=== PATIENT | male | born 1950 | race Caucasian/White ===

== ENCOUNTER 2016-08-26 07:10 | Inpatient (IN) | payer BC ==
[2016-08-26] MEDS ORDERED: Sotalol TAB* 80 MG ONE (11:36)
[2016-08-26] MEDS: Sotalol TAB* 80 MG PO SCH ×2 (11:37→21:02)
[2016-08-26] MEDS ORDERED: Pneumococcal *Vac Polyvalent 0.5 ML VIAL IM ONE (14:00)
[2016-08-26 14:11] LABS: Calcium 8.9 mg/dL (8.6-10.3); EGFR African American 135.3 (>60); EGFR Non-African American 105.2 (>60); Potassium 3.8 mmol/L (3.5-5.0)
[2016-08-26] MEDS: Apixaban* 5 MG TAB PO SCH ×2 (15:36→23:11)
[2016-08-26] MEDS ORDERED: Potassium Chlor TAB* 20 MEQ TAB.ER PO ONE (18:13)
[2016-08-26] MEDS: Acetaminophen TAB* 325 MG PO PRN (21:05)
[2016-08-27] MEDS: Temazepam CAP* 15 MG PO PRN ×2 (03:10→23:43)
[2016-08-27] MEDS: Omeprazole CAP* 20 MG PO SCH (07:33)
[2016-08-27] MEDS ORDERED: Valsartan/HCTZ 320/25(NF) TAB PO SCH (09:00)
[2016-08-27] MEDS: Potassium Chlor TAB* 20 MEQ TAB.ER PO SCH (09:39)
[2016-08-27] MEDS: Digoxin TAB* 0.25 MG PO SCH (09:40)
[2016-08-27] MEDS: Valsartan TAB* 160 MG PO SCH (09:40)
[2016-08-27] MEDS: Cholecalciferol TAB* 1000 UNITS PO SCH (09:40)
[2016-08-27] MEDS: Hydrochlorothiazide TAB* 25 MG PO SCH (09:40)
--- NOTE | 2016-08-27 09:42 | PN ---
Subjective Date of Service: 08/27/16 Interval History: f/u Afib Still with palpitations, ate breakfast no cp or dyspnea tele; rate uncontrolled AFib, no ventricular arrhythmias Medications Active Medications: Acetaminophen (Tylenol Tab*) 650 mg PO Q4H PRN PRN Reason: FEVER/PAIN Last Admin: 08/26/16 21:05 Dose: 650 mg Apixaban (Eliquis*) 5 mg PO BID [facility] Cholecalciferol (Vitamin D Tab*) 1,000 units PO DAILY [facility] Digoxin (Lanoxin Tab*) 0.25 mg PO DAILY [facility] Hydrochlorothiazide (Hydrodiuril Tab*) 25 mg PO DAILY [facility] Omeprazole (Prilosec Cap*) 40 mg PO DAILY@0730 [facility] Last Admin: 08/27/16 07:33 Dose: 40 mg Potassium Chloride (Klor Con Er Tab*) 20 meq PO DAILY [facility] Sotalol HCl (Betapace Tab*) 80 mg PO BID [facility] Last Admin: 08/26/16 21:02 Dose: 80 mg Temazepam (Restoril Cap*) 15 mg PO BEDTIME PRN PRN Reason: INSOMNIA Last Admin: 08/27/16 03:10 Dose: 15 mg Valsartan (Diovan Tab*) 320 mg PO DAILY [facility] Objective Vital Signs: Temp Pulse Resp BP Pulse Ox 98.1 F 116 16 141/88 97 08/27/16 07:11 08/27/16 07:11 08/27/16 08:00 08/27/16 07:11 08/27/16 07:11 Appearance: nad, pleasant Ears/Nose/Mouth/Throat: Clear Oropharnyx, Mucous Membranes Moist Neck: NL Appearance and Movements; NL JVP Respiratory: Symmetrical Chest Expansion and Respiratory Effort Cardiovascular: No Edema, - - irregularly irregular, no significant murmur Abdominal: NL Sounds; No Tenderness; No Distention Extremities: No Edema, No Clubbing, Cyanosis Skin: No Rash or Ulcers Neurological: Alert and Oriented x 3 Laboratory Results: 08/26/16 12:15 EKG Data: EKG 08/26/2016: AFib rate uncontrolled, PVC, normal QTc Assessment/Plan Mr. Rhodes is a 65 year old man with a history of HTN, obesity, sleep apnea had successful OCTAVIO/cardioversion 08/26/2016 with ERAF after several beats now admitted for sotalol initiation and repeat cardioversion attempt planned for - Continue eliquis 5 mg PO BID - Continue digoxin and sotalol as per Dr. 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
[2016-08-27] MEDS: Sotalol TAB* 80 MG PO SCH ×2 (09:43→20:09)
[2016-08-27] MEDS: Apixaban* 5 MG TAB PO SCH ×2 (09:43→20:09)
[2016-08-27] MEDS: Acetaminophen TAB* 325 MG PO PRN (11:40)
--- NOTE | 2016-08-27 12:29 | TEE ---
Patient: ETHAN HOANG [facility] Rec#: [id number] : 1950 Date: 08/26/2016 Age: 65y Height: 188 cm / 74.0 in Weight: 116.6 kg / 257.0 lbs Sex: M BSA: 2.4 Admit Date#: 08/26/2016 Type: Outpatient Referring: Gloria Garland MD Performing: Gloria Garland MD Reading: Gloria Garland MD Web Solutions Architect: Rachael Brandon RN RDCS Nurse: Melody Ornelas RN CC: Oxana Carmona MD Transesophageal Echocardiogram Indication: Atrial fibrillation BP: 142/89 HR: 132 Rhythm: A-Fib Findings History: HTN, PVCs, SVT, obstructive sleep apnea, AKA, prostate cancer Technical Comments: The study quality is good. Left Ventricle: The left ventricular chamber size is normal. Mild concentric left ventricular hypertrophy is observed. There is diffuse global hypokinesis of the left ventricle. There is moderately decreased left ventricular systolic function.30-40%, it appears to vary with the patient's heart rate. The assessment of diastolic function is non-diagnostic. Left Atrium: The left atrium is moderately dilated.6.1 x 6.3 cm and 5.3 x 4.9 cm No thrombus is visualized within the left atrium. There is no thrombus visualized in the left atrial appendage. Right Ventricle: The right ventricle is mildly dilated. The right ventricular global systolic function is mildly to moderately reduced. Right Atrium: The right atrium is mild to moderately dilated. A prominent eustachian valve is noted in the right atrium. Interatrial septum appears intact without evidence of shunting. There is no patent foramen ovale visualized. The bubble study is negative. Aortic Valve: The aortic valve is trileaflet. The aortic valve leaflets are mildly thickened. There is no evidence of aortic regurgitation. There is no evidence of aortic stenosis. Mitral Valve: The mitral valve leaflets are mildly thickened. There is mild to moderate mitral regurgitation. with multiple jets in some views. There is no evidence of mitral stenosis. Tricuspid Valve: The tricuspid valve leaflets are normal. There is trace tricuspid regurgitation. Pulmonic Valve: The pulmonic valve appears normal. There is a trace pulmonic regurgitation. There is no pulmonic stenosis. Pericardium: There is no significant pericardial effusion. Aorta: There is mild dilatation of the ascending aorta.at 3.8 cm. There is mild dilatation of the aortic root. There is minimal atherosclerotic plaque seen in the aorta. Pulmonary Artery: The main pulmonary artery appears normal. Venous: The bicaval view was obtained and appears normal. The pulmonary veins appear normal. 3 of 4 pulmonary veins are visualized and interrogated with Doppler. OCTAVIO Procedures: All standard views were attempted within the limitations of patient tolerance and safety. History and physical as well as labs were reviewed. The patient was in a fasting state. Risks and benefits of the procedure, including alternatives, were discussed and written informed consent was obtained. The patient and/or their health care retail customer service representative expressed understanding of the procedure, risks and benefits. Baseline and continuous monitoring of blood pressure, heart rate, pulse oximetry and heart rhythm was performed throughout the procedure. The appropriate time-out procedure was performed as per [facility] protocol. The patient was placed in the left lateral decubitus position. The patient's posterior pharynx was anesthetized with 20ml of 2% viscous lidocaine. The patient received IV Midazolam with a total dose of 11 mg. The patient received IV Fentanyl with a total dose of 100 mcg. An oral bite block was inserted for protection of oral dentition. The multiplane transesophageal echocardiogram probe was inserted through the posterior oropharynx and advanced into the esophagus without difficulty. Multiple 2D images were obtained of the heart and its related structures. Color flow Doppler was used for evaluation. Spectral Doppler was also used. The atrial septum was interrogated with color flow Doppler. At the conclusion of the procedure the probe was removed with continuous suction without complications. The patient tolerated the procedure with no apparent complications. Contrast: Normal saline was used as contrast for the bubble study. Image 49. Conclusions Mild concentric left ventricular hypertrophy is observed with diffuse global hypokinesis of the left ventricle. There is moderately decreased left ventricular systolic function.30-40%, it appears to vary with the patient's heart rate, appears better on gastric views. The left atrium is moderately dilated. The right atrium is mild to moderately dilated. The bubble study is negative. There is no thrombus visualized in the left atrial appendage. The right ventricular global systolic function is mildly to moderately reduced. There is mild to moderate mitral regurgitation. There is trace tricuspid regurgitation. There is mild dilatation of the ascending aorta.at 3.8 cm. Compared with prior transthoracic study of , EF has decreased from normal, no progression in aorta diameter, previously 4.0 cm. A fib and tachycardia are new. Measurements Name Value Normal Range Aortic Annulus 2.6 cm (1.4 - 2.6) Ao root diameter (2D) 3.8 cm (2.1 - 3.5) Ascending Ao 3.8 cm (2.1 - 3.4) Name Value Normal Range MV E-wave Vmax 0.74 m/sec - MV deceleration time 127 msec -
[2016-08-28 05:39] LABS: BUN/Creatinine Ratio 21.1 (8-20); EGFR African American 133.2 (>60); EGFR Non-African American 103.6 (>60); Magnesium 1.9 mg/dL (1.9-2.7); Potassium 4.1 mmol/L (3.5-5.0)
[2016-08-28] MEDS: Omeprazole CAP* 20 MG PO SCH ×2 (08:46→15:05)
[2016-08-28] MEDS: Cholecalciferol TAB* 1000 UNITS PO SCH ×2 (08:47→15:05)
[2016-08-28] MEDS: Digoxin TAB* 0.25 MG PO SCH ×2 (08:47→15:06)
[2016-08-28] MEDS: Valsartan TAB* 160 MG PO SCH ×2 (08:47→15:07)
[2016-08-28] MEDS: Sotalol TAB* 80 MG PO SCH ×2 (08:47→10:45)
[2016-08-28] MEDS: Hydrochlorothiazide TAB* 25 MG PO SCH ×2 (08:47→15:07)
[2016-08-28] MEDS: Potassium Chlor TAB* 20 MEQ TAB.ER PO SCH ×2 (08:47→15:07)
[2016-08-28] MEDS: Apixaban* 5 MG TAB PO SCH ×3 (08:47→19:56)
--- NOTE | 2016-08-28 10:37 | PN ---
Subjective Date of Service: 08/28/16 - CC: palpitations Interval History: f/u Afib Still with palpitations, afib Medications Active Medications: Acetaminophen (Tylenol Tab*) 650 mg PO Q4H PRN PRN Reason: FEVER/PAIN Last Admin: 08/27/16 11:40 Dose: 650 mg Apixaban (Eliquis*) 5 mg PO BID [facility] Last Admin: 08/28/16 08:47 Dose: Not Given Cholecalciferol (Vitamin D Tab*) 1,000 units PO DAILY [facility] Last Admin: 08/28/16 08:47 Dose: Not Given Digoxin (Lanoxin Tab*) 0.25 mg PO DAILY [facility] Last Admin: 08/28/16 08:47 Dose: Not Given Hydrochlorothiazide (Hydrodiuril Tab*) 25 mg PO DAILY [facility] Last Admin: 08/28/16 08:47 Dose: Not Given Omeprazole (Prilosec Cap*) 40 mg PO DAILY@0730 [facility] Last Admin: 08/28/16 08:46 Dose: Not Given Potassium Chloride (Klor Con Er Tab*) 20 meq PO DAILY [facility] Last Admin: 08/28/16 08:47 Dose: Not Given Sotalol HCl (Betapace Tab*) 80 mg PO BID [facility] Last Admin: 08/28/16 08:47 Dose: Not Given Temazepam (Restoril Cap*) 15 mg PO BEDTIME PRN PRN Reason: INSOMNIA Last Admin: 08/27/16 23:43 Dose: 15 mg Valsartan (Diovan Tab*) 320 mg PO DAILY [facility] Last Admin: 08/28/16 08:47 Dose: Not Given Objective Vital Signs: Temp Pulse Resp BP Pulse Ox 98.2 F 53 18 146/96 98 08/28/16 07:36 08/28/16 07:36 08/28/16 08:00 08/28/16 07:36 08/28/16 07:36 Oxygen Devices in Use Now: None Appearance: nad, pleasant Eyes: PERRLA Ears/Nose/Mouth/Throat: Clear Oropharnyx, Mucous Membranes Moist Neck: NL Appearance and Movements; NL JVP Respiratory: Symmetrical Chest Expansion and Respiratory Effort Cardiovascular: No Edema, - - irregularly irregular, no murmur Abdominal: NL Sounds; No Tenderness; No Distention Extremities: No Edema, No Clubbing, Cyanosis Skin: No Rash or Ulcers Neurological: Alert and Oriented x 3 Lines/Tubes/Other Access: Clean, Dry and Intact Peripheral IV Laboratory Results: 08/28/16 05:04 EKG Data: EKG 08/28/2016: AFib rate uncontrolled 120 bpm, normal QTc Assessment/Plan Mr. Rhodes is a 65 year old man with a history of HTN, obesity, sleep apnea unsuccessful OCTAVIO/cardioversion 08/26/2016 admitted for sotalol initiation and repeat cardioversion attempt planned for 08/28/2016 Lytes look good, needs AM sotalol pre cardioversion. s/p [id number] cardoverion. Points of Discussion: AFib: New, but refractory to CV. Sotalol did not improve rate control greatly. Stop Sotalol. Trial of coreg for BP and CM and rate control. Refer to EPS, ? Tikosyn, with frequent PVC's may not be the best candidate. ? amiodarone? young. Pt needs to optimize weight. COntinue anticoagulation.
[2016-08-28] MEDS ORDERED: fentaNYL* 50 MCG/ML 2 ML VIAL (100 MCG VIAL) ONE ×2 (11:38→12:01)
[2016-08-28] MEDS ORDERED: Naloxone* 0.4 MG/ML 1 ML VIAL ONE (11:38)
[2016-08-28] MEDS ORDERED: Flumazenil* 0.1 MG/ML 5 ML MDV ONE (11:38)
[2016-08-28] MEDS ORDERED: Midazolam* 1 MG/ML 10 ML VIAL (10 MG) ONE (11:39)
[2016-08-28] MEDS: Carvedilol TAB* 25 MG PO SCH (19:56)
[2016-08-28] MEDS: Acetaminophen TAB* 325 MG PO PRN (23:21)
[2016-08-29] MEDS: Cholecalciferol TAB* 1000 UNITS PO SCH (08:37)
[2016-08-29] MEDS: Digoxin TAB* 0.25 MG PO SCH (08:37)
[2016-08-29] MEDS: Potassium Chlor TAB* 20 MEQ TAB.ER PO SCH (08:39)
[2016-08-29] MEDS: Valsartan TAB* 160 MG PO SCH (08:40)
[2016-08-29] MEDS: Omeprazole CAP* 20 MG PO SCH (08:40)
[2016-08-29] MEDS: Apixaban* 5 MG TAB PO SCH (08:41)
[2016-08-29] MEDS: Carvedilol TAB* 25 MG PO SCH (08:41)
[2016-08-29] MEDS: Hydrochlorothiazide TAB* 25 MG PO SCH (08:41)
[2016-08-29 11:32] VITALS: BP 118/66
--- NOTE | 2016-09-23 03:49 | CARD ---
ELECTRICAL CARDIOVERSION NOTE: DATE OF PROCEDURE: 08/26/16 PROCEDURE: Electrical cardioversion. INDICATION: Atrial fibrillation. DESCRIPTION OF PROCEDURE: The indications, risks, and benefits of the procedure has been described to the patient in depth. He was amenable to proceeding. The patient underwent a transesophageal echo to ensure there was no thrombus. This report is documented separately. During this, he received 20 mL of 2% viscous lidocaine as well as 11 mg of Versed and 100 mcg of fentanyl. Using AP patches, initially 200 joules were delivered across the chest wall with unsuccessful cardioversion. This was then followed by a second attempt at 300 joules synchronously delivered, also unsuccessful. CONCLUSION: Unsuccessful cardioversion. Otherwise, no complications. The patient was admitted for sotalol loading. [id number]/[facility] #: [id number] ETELVINA
--- NOTE | 2016-09-23 03:58 | CARD ---
ELECTRICAL CARDIOVERSION: DATE OF PROCEDURE: 08/28/16 PROCEDURE: Electrical cardioversion. PREPROCEDURE DIAGNOSIS: Atrial fibrillation. POSTPROCEDURE DIAGNOSIS: Atrial fibrillation. INDICATION: Persistent atrial fibrillation. The patient has failed cardioversion on the August 26 2016. The patient was loaded with sotalol. He was made n.p.o. and scheduled for another attempt at cardioversion. DESCRIPTION OF PROCEDURE: The indications, risks, and benefits were reviewed with the patient. He was amenable to proceeding. The patient was in a postprandial state. A time-out was called. AP patches were applied to the chest wall. 300 joules were delivered synchronously with unsuccessful cardioversion (conscious sedation in the ICU). See conscious sedation sheet for details. CONCLUSION: The patient had an unsuccessful cardioversion, on sotalol. [id number]/[facility] #: [id number] MTDD
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
== END 2016-08-29 13:20 | disposition home or self-care (01) | DRG 201 ==
LOC: CHICATH 07:10 → MEDTELE 10:57
PROVIDERS: ADMIT Specialist; ATTEND Specialist
PROC: 5A2204Z Restoration of Cardiac Rhythm, Single (ICD-10-PCS; 2016-08-26)
PROC: B246ZZ4 Ultrasonography of Right and Left Heart, Transesophageal (ICD-10-PCS; principal; 2016-08-26 08:00)
PROC: 5A2204Z Restoration of Cardiac Rhythm, Single (ICD-10-PCS; 2016-08-28)
DX: I48.91 Unspecified atrial fibrillation (principal); Z89.612 Acquired absence of left leg above knee; I10 Essential (primary) hypertension; I47.1 Supraventricular tachycardia; G47.33 Obstructive sleep apnea (adult) (pediatric); E66.9 Obesity, unspecified; C44.519 Basal cell carcinoma of skin of other part of trunk; K44.9 Diaphragmatic hernia without obstruction or gangrene; I49.3 Ventricular premature depolarization; D23.9 Other benign neoplasm of skin, unspecified; Z80.42 Family history of malignant neoplasm of prostate; Z80.3 Family history of malignant neoplasm of breast; Z87.891 Personal history of nicotine dependence; Z79.01 Long term (current) use of anticoagulants; Z79.899 Other long term (current) drug therapy; Z85.46 Personal history of malignant neoplasm of prostate; Z68.30 Body mass index [BMI] 30.0-30.9, adult
CPT/HCPCS: 36415; 80048; 83735; 92960; 93005; 93312; 93325; A9270-GY; J2250; J2310; J3010

== ENCOUNTER 2017-07-18 08:42 | Inpatient (IN) | payer BC ==
[2017-07-18] MEDS ORDERED: Acetaminophen TAB* 325 MG PO PRN (10:26)
[2017-07-18 11:16] LABS: Calcium 8.9 mg/dL (8.6-10.3); EGFR African American 102.6 (>60); EGFR Non-African American 79.8 (>60); Magnesium 2.1 mg/dL (1.9-2.7)
[2017-07-18] MEDS: Dofetilide CAP* 500 MCG PO SCH ×2 (12:18→20:42)
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
[2017-07-18] MEDS: Apixaban* 5 MG TAB PO SCH (20:42)
[2017-07-18] MEDS: Carvedilol TAB* 25 MG PO SCH (20:42)
[2017-07-19 06:53] LABS: BUN/Creatinine Ratio 16.7 (8-20); Calcium 9.1 mg/dL (8.6-10.3); EGFR African American 101.4 (>60); EGFR Non-African American 78.9 (>60)
[2017-07-19] MEDS: Omeprazole CAP* 20 MG PO SCH (08:38)
[2017-07-19] MEDS: Apixaban* 5 MG TAB PO SCH ×2 (08:38→20:57)
[2017-07-19] MEDS: Dofetilide CAP* 500 MCG PO SCH ×2 (08:38→20:57)
[2017-07-19] MEDS: Carvedilol TAB* 25 MG PO SCH ×2 (08:38→20:57)
[2017-07-19] MEDS: Valsartan TAB* 160 MG PO SCH (08:39)
[2017-07-19] MEDS: Potassium Chlor TAB* 20 MEQ TAB.ER PO SCH (08:39)
[2017-07-19] MEDS ORDERED: Hydrochlorothiazide TAB* 25 MG PO SCH (09:00)
[2017-07-20 09:27] LABS: BUN/Creatinine Ratio 18.1 (8-20); Calcium 9.2 mg/dL (8.6-10.3); EGFR African American 91.5 (>60); EGFR Non-African American 71.1 (>60); Magnesium 2.1 mg/dL (1.9-2.7); Potassium 3.8 mmol/L (3.5-5.0)
[2017-07-20] MEDS: Dofetilide CAP* 500 MCG PO SCH (10:39)
[2017-07-20] MEDS: Carvedilol TAB* 25 MG PO SCH (10:40)
[2017-07-20] MEDS: Potassium Chlor TAB* 20 MEQ TAB.ER PO SCH (10:40)
[2017-07-20] MEDS: Apixaban* 5 MG TAB PO SCH (10:40)
[2017-07-20] MEDS: Omeprazole CAP* 20 MG PO SCH (10:40)
[2017-07-20] MEDS: Valsartan TAB* 160 MG PO SCH (10:40)
[2017-07-20 16:24] VITALS: BP 117/72
[2017-07-20] MEDS ORDERED: Potassium Chlor TAB* 20 MEQ TAB.ER PO ONE (17:00)
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
== END 2017-07-20 17:04 | disposition home or self-care (01) | DRG 201 ==
LOC: MEDTELE 09:25
PROVIDERS: ADMIT Specialist; ATTEND Internal Medicine Cardiovascular Disease
DX: I48.0 Paroxysmal atrial fibrillation (principal); I42.9 Cardiomyopathy, unspecified; Z89.619 Acquired absence of unspecified leg above knee; I10 Essential (primary) hypertension; R00.1 Bradycardia, unspecified; I49.3 Ventricular premature depolarization; Z86.19 Personal history of other infectious and parasitic diseases; Z85.46 Personal history of malignant neoplasm of prostate; Z79.01 Long term (current) use of anticoagulants
CPT/HCPCS: 36415; 80048; 83735; 93005; A9270-GY

== ENCOUNTER 2018-05-09 07:19 | Day surgery (SDC) | payer MEDICARE, BC ==
[~2018-05-09 07:19] MED LIST: Acetaminophen TAB* 325 MG PO PRN; Buffered Lidocaine 0.9% SYRIN* 5 ML/SYR SYRINGE INTRADERM ONE
[2018-05-09] MEDS ORDERED: Tropicamide 1% OPTH.SOL* BTL ONE (08:06)
[2018-05-09] MEDS ORDERED: Tetracaine 0.5% OPTH.SOL 4 ML* 1 DROP BTL ONE (08:06)
[2018-05-09] MEDS ORDERED: Ketorolac 0.5% OPHTH (NF) 0.5 % 5 ML BTL ONE (08:06)
[2018-05-09] MEDS ORDERED: Cyclopentolate 1% OPTH.SOL* 2 ML BTL ONE (08:06)
[2018-05-09] MEDS ORDERED: Neomycin/Polymy/Dex OPHTH.OIN* 3.5 GM ONE (08:06)
[2018-05-09] MEDS ORDERED: Lidocaine 1%* 5 ML VIAL ONE (08:06)
[2018-05-09] MEDS ORDERED: Phenylephrine 2.5% OPTH.SOL* 2 ML BTL ONE (08:06)
[2018-05-09] MEDS ORDERED: Trypan Blue 0.06% SOL* 0.5 ML BTL ONE (08:07)
[2018-05-09] MEDS ORDERED: fentaNYL* 50 MCG/ML 2 ML VIAL (100 MCG VIAL) ONE (08:30)
[2018-05-09] MEDS ORDERED: Midazolam* 1 MG/ML 2 ML VIAL (2 MG) ONE ×2 (08:30→08:48)
[2018-05-09 09:19] VITALS: BP 135/80
[2018-05-09] MEDS ORDERED: Phenylephr/Ketorolac 1%/0.3% OPH DROP BTL ONE (10:07)
--- NOTE | 2018-05-10 03:00 | OP ---
DATE OF OPERATION: 05/09/18 [facility] DATE OF : 54 SURGEON: Dr. Ramon Ferguson. SOLAR ENGINEER: None. ANESTHESIA: Topical with intravenous sedation. PRE-OP DIAGNOSIS: White cataract, left eye. POST-OP DIAGNOSIS: White cataract, left eye. OPERATIVE PROCEDURE: Phacoemulsification and cataract extraction with posterior chamber intraocular lens implant, left eye. COMPLICATIONS: None. BLOOD LOSS: None. DESCRIPTION OF PROCEDURE: The patient was brought to the operating room and given intravenous sedation, a drop of tetracaine to his left eye. He was prepped and draped in the usual sterile fashion for ophthalmic surgery. Attention was directed to the left eye where a speculum was placed. It was noted that his pupil was measuring approximately 4.5 mm and the lens was fairly white. A paracentesis was created at the 5 o'clock position and 0.1 cc of 1% preservative free lidocaine was injected into the anterior chamber. This was followed by room air and then VisionBlue. Subsequently, DisCoVisc was injected into the anterior chamber. A triplanar clear corneal incision was created at the 3 o'clock position using a 2.75 mm keratome. A continuous curvilinear capsulorrhexis was created with a cystotome and Utrata forceps measuring approximately 4.5 mm. BSS on a cannula was used to hydrodissect the lens from the capsule or may be it was added to the irrigating solution. Phacoemulsification was performed in a qadein-tqa-yeclsuw technique to create 4 fragments which were removed. Residual cortical material was removed with irrigation and aspiration. The capsular bag was polished. DisCoVisc was used to inflate the capsular bag. An AU00T0 18.0 diopter lens was inserted into the capsular bag. DisCoVisc was removed using irrigation aspiration. BSS on cannula was used to hydrate the corneal stroma and seal the wound. At the end of the case, the pupil was round. The lens was centered and stable. The eye pressure appeared normal and the wound was water tight. The speculum was removed and topical Maxitrol ointment was placed on the surface of the eye. The eye was closed, patched and shielded and the patient was sent to the recovery room in stable condition with postoperative instructions and follow-up appointment given. [id number]/[facility] #: [id number] [facility]ITAL[facility]
== END 2018-05-09 09:22 | disposition home or self-care (01) ==
LOC: OREAST 07:19
PROVIDERS: ATTEND Ophthalmology
DX: H25.12 Age-related nuclear cataract, left eye (principal); I10 Essential (primary) hypertension; I48.0 Paroxysmal atrial fibrillation; I49.3 Ventricular premature depolarization; I42.9 Cardiomyopathy, unspecified; Z85.46 Personal history of malignant neoplasm of prostate; K21.9 Gastro-esophageal reflux disease without esophagitis; E03.9 Hypothyroidism, unspecified; G47.33 Obstructive sleep apnea (adult) (pediatric)
CPT/HCPCS: A9270-GY; C9447; J2250; J3010; V2632

== ENCOUNTER 2018-08-22 08:06 | Day surgery (SDC) | payer MEDICARE, BC ==
[~2018-08-22 08:06] MED LIST changes: -Acetaminophen TAB* 325 MG PO PRN
[2018-08-22] MEDS ORDERED: Ketorolac 0.5% OPHTH (NF) 0.5 % 5 ML BTL ONE (09:16)
[2018-08-22] MEDS ORDERED: Tetracaine 0.5% OPTH.SOL 4 ML* 1 DROP BTL ONE (09:16)
[2018-08-22] MEDS ORDERED: Cyclopentolate 1% OPTH.SOL* 2 ML BTL ONE (09:16)
[2018-08-22] MEDS ORDERED: Tropicamide 1% OPTH.SOL* BTL ONE (09:16)
[2018-08-22] MEDS ORDERED: Lidocaine 1%* 5 ML VIAL ONE (09:16)
[2018-08-22] MEDS ORDERED: Neomycin/Polymy/Dex OPHTH.OIN* 3.5 GM ONE (09:16)
[2018-08-22] MEDS ORDERED: Midazolam* 1 MG/ML 2 ML VIAL (2 MG) ONE (09:53)
[2018-08-22 10:23] VITALS: BP 150/84
--- NOTE | 2018-08-22 11:05 | OP ---
DATE OF OPERATION/DATE OF DICTATION: 08/22/2018 - [facility] DATE OF : 1950. SURGEON: Dr. Ramon Ferguson. BLURB WRITER: None. ANESTHESIA: Topical with intravenous sedation. PRE-OP DIAGNOSIS: Cataract, right eye. POST-OP DIAGNOSIS: Cataract, right eye. OPERATIVE PROCEDURE: Phacoemulsification and cataract extraction with posterior chamber intraocular lens implant, right eye. COMPLICATIONS: None. BLOOD LOSS: None. DESCRIPTION OF PROCEDURE: The patient was brought to the operating room and received a small amount of intravenous sedation. A drop of Tetracaine was placed in his right eye. He was prepped and draped in the usual sterile fashion for ophthalmic surgery and attention was directed to the right eye where a speculum was placed. A paracentesis was created at the 11 o'clock position and 0.1 cc of 1 percent preservative-free Lidocaine was injected into the anterior chamber followed by DisCoVisc. The eye was digitally stabilized while a 2.75 mm keratome was used to create a triplanar clear corneal incision at the 9 o'clock position. A continuous curvilinear capsulorrhexis was created with a cystotome and Utrata forceps. BSS on a cannula was used to hydrodissect the lens from the capsule. Phacoemulsification was performed in a divide-and- conquer technique to create four fragments which were removed. Residual cortical material was removed with irrigation and aspiration. DisCoVisc was used to inflate the capsular bag and an AUOOTO 17.0 diopter lens was folded and inserted into the capsular bag. DisCoVisc was removed using irrigation and aspiration. BSS on a cannula was used to hydrate the corneal stroma and seal the wound. At the end of the case the pupil was round and the lens was centered. The eye was of normal pressure and the wound was water tight. The speculum was removed and topical Maxitrol ointment was placed on the surface of the eye. The eye was closed, patched and shielded and the patient was sent to the recovery room in stable condition with post operative instructions and follow-up appointment given. [id number]/[facility] #: [id number] MTDD
== END 2018-08-22 10:24 | disposition home or self-care (01) ==
LOC: OREAST 08:06
PROVIDERS: ATTEND Ophthalmology
DX: H25.11 Age-related nuclear cataract, right eye (principal); I10 Essential (primary) hypertension; Z87.891 Personal history of nicotine dependence; E03.8 Other specified hypothyroidism; K21.9 Gastro-esophageal reflux disease without esophagitis; G47.33 Obstructive sleep apnea (adult) (pediatric); Z85.828 Personal history of other malignant neoplasm of skin; I48.0 Paroxysmal atrial fibrillation; Z79.01 Long term (current) use of anticoagulants; I42.2 Other hypertrophic cardiomyopathy
CPT/HCPCS: A9270-GY; J2250; V2632

== ENCOUNTER 2023-11-16 12:46 | Observation (INO) ==
[2023-11-16 14:57] LABS: ABS Basophils 0.1 10^3/uL (0.0-0.1); ABS Eosinophils 0.2 10^3/uL (0.0-0.5); ABS Lymphocytes 1.6 10^3/uL (1.0-4.8); ABS Monocytes 0.9 10^3/uL (0.0-1.1); ABS Neutrophils 6.3 10^3/uL (1.5-7.6); Eosinophil % 2.1 %; Hematocrit 42.3 % (38-53); Hemoglobin 14.3 g/dL (13.2-16.3); Lymphocyte % 17.9 %; Mean Corpuscular Hemoglobin 30.4 pg (27-33); Mean Corpuscular Hgb Conc 33.9 g/dL (31-36); Mean Corpuscular Volume 89.7 fL (80-97); Mean Platelet Volume 7.1 fL (7.5-11.2); Platelet Count 303 10^3/uL (150-450); Red Blood Count 4.72 10^6/uL (4.06-5.63); Red Cell Distribution Width 14.9 % (12-17); White Blood Count 9.1 10^3/uL (3.6-10.2)
[2023-11-16 15:40] LABS: Albumin 3.8 g/dL (3.2-5.2); Albumin/Globulin Ratio 1.4 (1-3); C Reactive Protein 10.31 mg/L (<8.01); Calcium 8.7 mg/dL (8.6-10.3); Creatinine, Serum 0.93 mg/dL (0.67-1.17); Globulin 2.8 g/dL (2-4); Potassium 4.2 mmol/L (3.5-5.0); Total Bilirubin 0.5 mg/dL (0.2-1.0); Total Protein 6.6 g/dL (6.4-8.9); eGFR CKD-EPI 87.8 (>60)
[2023-11-16] MEDS: Iohexol 350 (CONTRAST) 500 ML MDV IV ONE (16:22)
[2023-11-16 16:46] LABS: Erythrocyte Sed Rate 26 mm/Hr (0-19)
[2023-11-16] MEDS: Midazolam 2 mg/2 ml VIAL 1 mg/ml 2 ml VIAL (2 mg) IV SLOW PU ONE (18:46)
[2023-11-16] MEDS ORDERED: Lidocaine 1% MPF 5 ML VIAL ONE ×2 (19:25→21:26)
[2023-11-16] MEDS: Ondansetron 4 mg VIAL 2 MG/ML 2 ml VIAL IV ONE (21:54)
[2023-11-16] MEDS: NS 0.9% 1000 ml BAG 1,000 ML IV ONE (21:54)
[2023-11-16] MEDS: Metoprolol Tartrate 5 mg VIAL 5 ml VIAL (1 mg/ml) IV ONE (23:08)
[2023-11-17] MEDS: Metoprolol Tartrate 5 mg VIAL 5 ml VIAL (1 mg/ml) IV ONE (00:37)
[2023-11-17 13:49] VITALS: BP 112/75
[2023-11-17] MEDS ORDERED: LOVASTATIN 10 MG PO SCH (17:00)
== END 2023-11-17 15:25 | disposition home or self-care (01) ==
LOC: ED 12:46 → EDHOLD 23:34 → INTOOBSV 23:34 → SUATTDRO 23:34 → MEDTELE 11-17 00:43
PROVIDERS: ADMIT Internal Medicine; ATTEND Student in an Organized Health Care Education/Training Program

== ENCOUNTER 2023-12-15 09:50 | Inpatient (IN) ==
[2023-12-15] MEDS: D5NS 0.9% 1000 ml BAG 1,000 ML IV SCH (10:44)
[2023-12-15 10:54] LABS: ABS Basophils 0.1 10^3/uL (0.0-0.1); ABS Lymphocytes 1.2 10^3/uL (1.0-4.8); ABS Neutrophils 9.6 10^3/uL (1.5-7.6); ABS Nucleated RBC 0.01 10^3/ul; Eosinophil % 0.4 %; Hematocrit 41.6 % (38-53); Hemoglobin 14.2 g/dL (13.2-16.3); Mean Corpuscular Hemoglobin 30.3 pg (27-33); Mean Corpuscular Hgb Conc 34.2 g/dL (31-36); Mean Corpuscular Volume 88.8 fL (80-97); Mean Platelet Volume 6.9 fL (7.5-11.2); Platelet Count 290 10^3/uL (150-450); Red Blood Count 4.69 10^6/uL (4.06-5.63); Red Cell Distribution Width 14.5 % (12-17); White Blood Count 11.9 10^3/uL (3.6-10.2)
[2023-12-15 11:20] LABS: High Sens Troponin Baseline 16 pg/mL (<20)
[2023-12-15 11:34] LABS: ALT 12 U/L (7-52); AST 15 U/L (13-39); Albumin 3.8 g/dL (3.2-5.2); Albumin/Globulin Ratio 1.4 (1-3); Alkaline Phosphatase 44 U/L (35-149); Anion Gap 13 mmol/L (2-16); Blood Urea Nitrogen 14 mg/dL (6-24); C Reactive Protein 15.21 mg/L (<8.01); CO2 Carbon Dioxide 20 mmol/L (22-32); Calcium 8.4 mg/dL (8.6-10.3); Chloride 98 mmol/L (101-111); Creatine Kinase 166 U/L (10-223); Creatinine, Serum 0.83 mg/dL (0.67-1.17); Globulin 2.8 g/dL (2-4); Glucose 89 mg/dL (70-100); Lipase 16 U/L (11.0-82.0); Magnesium 1.8 mg/dL (1.9-2.7); Phosphorus 2.8 mg/dL (2.5-5.0); Sodium 131 mmol/L (135-145); Total Bilirubin 0.7 mg/dL (0.2-1.0); Total Protein 6.6 g/dL (6.4-8.9); eGFR CKD-EPI 93.6 (>60)
[2023-12-15] MEDS: Metoclopramide 5 MG/ML VIAL (10 mg) IV SLOW PU ONE (11:44)
[2023-12-15 12:11] LABS: Urine Appearance Clear; Urine Bilirubin Negative (Negative); Urine Blood Trace (Negative); Urine Color Light-Yellow; Urine Glucose 4+ (>=1000 mg/dL) (Negative); Urine Ketones 3+ (Negative); Urine Nitrite Negative (Negative); Urine Protein Trace (Negative); Urine Urobilinogen Negative (Negative); Urine pH 5.5 (5.0-8.0)
[2023-12-15 12:15] LABS: High Sensitivity Troponin 1 Hr 16 pg/mL (<20)
[2023-12-15] MEDS: Magnesium Sulfate 2 gm BAG 2 GM/50 ML BAG IVPB ONE (13:04)
[2023-12-15] MEDS ORDERED: Enoxaparin 40 MG/0.4 ML SYR SUBCUT SCH (16:00)
[2023-12-15] MEDS ORDERED: prednisoLONE 1% OPHTH.SUSP 5 ML OPHTH.SUSP RIGHT EYE SCH (18:00)
[2023-12-15 19:32] LABS: TSH Ultra Thyroid Stim Horm 0.82 mcIU/mL (0.34-5.60)
[2023-12-15 19:43] LABS: Folate > 20.00 ng/mL (5.90-24.80)
[2023-12-15 19:44] LABS: Vitamin B12 513 pg/mL (180-914)
[2023-12-15] MEDS: Labetalol IV 5 MG/ML 20 ml VIAL IV PUSH ONE (22:30)
[2023-12-16] MEDS: Acetaminophen IV 1 GM/100ML 1,000 MG/100 ML BAG IV PRN (04:25)
[2023-12-16] MEDS: Metoprolol Tartrate 5 mg VIAL 5 ml VIAL (1 mg/ml) IV ONE (05:19)
[2023-12-16 06:19] LABS: ABS Eosinophils 0.1 10^3/uL (0.0-0.5); ABS Lymphocytes 1.2 10^3/uL (1.0-4.8); ABS Monocytes 0.9 10^3/uL (0.0-1.1); ABS Neutrophils 8.3 10^3/uL (1.5-7.6); ABS Nucleated RBC 0.01 10^3/ul; Eosinophil % 0.8 %; Hematocrit 37.5 % (38-53); Hemoglobin 12.8 g/dL (13.2-16.3); Mean Corpuscular Hemoglobin 30.3 pg (27-33); Mean Corpuscular Hgb Conc 34.1 g/dL (31-36); Mean Corpuscular Volume 88.8 fL (80-97); Mean Platelet Volume 7.2 fL (7.5-11.2); Nucleated Red Blood Cells % 0.1 %/100WBC (0.0-0.8); Platelet Count 257 10^3/uL (150-450); Red Blood Count 4.23 10^6/uL (4.06-5.63); Red Cell Distribution Width 14.6 % (12-17); White Blood Count 10.5 10^3/uL (3.6-10.2)
[2023-12-16 06:34] LABS: Calcium 7.6 mg/dL (8.6-10.3); Creatinine, Serum 0.77 mg/dL (0.67-1.17); Potassium 3.3 mmol/L (3.5-5.0); eGFR CKD-EPI 95.7 (>60)
[2023-12-16] MEDS: KCL 20 MEQ/100 ML IVPREMIX 20 MEQ/100 ML BAG IV SCH (08:04)
[2023-12-16] MEDS: Cholecalciferol (VIT D3) 1,000 unit TAB PO SCH (08:09)
[2023-12-16 10:54] LABS: C Reactive Protein 13.29 mg/L (<8.01)
[2023-12-16] MEDS: LOVASTATIN 10 MG PO SCH (16:11)
[2023-12-16 19:28] LABS: Albumin 3.6 g/dL (3.2-5.2); Albumin/Globulin Ratio 1.4 (1-3); Calcium 8.4 mg/dL (8.6-10.3); Creatinine, Serum 0.75 mg/dL (0.67-1.17); Globulin 2.6 g/dL (2-4); Potassium 4.1 mmol/L (3.5-5.0); Total Bilirubin 0.4 mg/dL (0.2-1.0); Total Protein 6.2 g/dL (6.4-8.9); eGFR CKD-EPI 96.5 (>60)
[2023-12-17] MEDS: Labetalol IV 5 MG/ML 20 ml VIAL IV PUSH ONE (02:08)
[2023-12-17 06:15] LABS: ABS Basophils 0.1 10^3/uL (0.0-0.1); ABS Eosinophils 0.1 10^3/uL (0.0-0.5); ABS Lymphocytes 1.7 10^3/uL (1.0-4.8); ABS Neutrophils 8.2 10^3/uL (1.5-7.6); ABS Nucleated RBC 0.01 10^3/ul; Eosinophil % 0.9 %; Hematocrit 39.6 % (38-53); Hemoglobin 13.5 g/dL (13.2-16.3); Lymphocyte % 15.5 %; Mean Corpuscular Hemoglobin 30.6 pg (27-33); Mean Corpuscular Hgb Conc 34.2 g/dL (31-36); Mean Corpuscular Volume 89.4 fL (80-97); Mean Platelet Volume 7.4 fL (7.5-11.2); Platelet Count 286 10^3/uL (150-450); Red Blood Count 4.43 10^6/uL (4.06-5.63); Red Cell Distribution Width 14.6 % (12-17); White Blood Count 11.2 10^3/uL (3.6-10.2)
[2023-12-17 06:50] LABS: Calcium 8.3 mg/dL (8.6-10.3); Creatinine, Serum 0.84 mg/dL (0.67-1.17); Magnesium 1.9 mg/dL (1.9-2.7); Potassium 3.9 mmol/L (3.5-5.0); eGFR CKD-EPI 93.2 (>60)
[2023-12-17] MEDS: Potassium Chlor 20 meq TAB.ER PO ONE ×2 (08:17→12:05)
[2023-12-17] MEDS: Metoprolol Tartrate 5 mg VIAL 5 ml VIAL (1 mg/ml) IV ONE (17:38)
[2023-12-18 05:57] LABS: Hematocrit 42.3 % (38-53); Hemoglobin 14.3 g/dL (13.2-16.3); Mean Corpuscular Hemoglobin 30.5 pg (27-33); Mean Corpuscular Hgb Conc 33.7 g/dL (31-36); Mean Corpuscular Volume 90.6 fL (80-97); Platelet Count 281 10^3/uL (150-450); Red Blood Count 4.67 10^6/uL (4.06-5.63); Red Cell Distribution Width 14.8 % (12-17); White Blood Count 12.2 10^3/uL (3.6-10.2)
[2023-12-18 06:30] LABS: Albumin 3.5 g/dL (3.2-5.2); Albumin/Globulin Ratio 1.3 (1-3); Calcium 8.3 mg/dL (8.6-10.3); Creatinine, Serum 0.8 mg/dL (0.67-1.17); Globulin 2.7 g/dL (2-4); Potassium 4.2 mmol/L (3.5-5.0); Total Bilirubin 0.7 mg/dL (0.2-1.0); Total Protein 6.2 g/dL (6.4-8.9); eGFR CKD-EPI 94.6 (>60)
[2023-12-18 07:13] LABS: Venous Bicarbonate HCO3 23.7 mmol/L (24-28)
[2023-12-18] MEDS: Calcium Carb (TUMS) 500 mg CHEW TAB PO SCH (09:44)
[2023-12-18] MEDS: Senna TAB 8.6 mg TAB PO SCH (09:44)
[2023-12-18] MEDS: Polyethylene Glycol 3350 17 GM PACKET PO SCH (09:45)
[2023-12-18 11:07] LABS: Urine Potassium Concentration 37.3 mmol/L
[2023-12-18 13:26] LABS: Calcium 8.6 mg/dL (8.6-10.3); Creatinine, Serum 0.88 mg/dL (0.67-1.17); Potassium 4.5 mmol/L (3.5-5.0); eGFR CKD-EPI 91.9 (>60)
[2023-12-18 14:23] LABS: Vitamin D Total 25(OH) 18.1 ng/mL (20-50)
[2023-12-18] MEDS: LOVASTATIN 10 MG PO SCH (18:07)
[2023-12-18] MEDS: LACTATED RINGERS IV SCH (18:17)
[2023-12-18] MEDS: SODIUM BICARB IV SCH (18:17)
[2023-12-19 06:42] LABS: Magnesium 2.1 mg/dL (1.9-2.7)
[2023-12-19 06:43] LABS: Calcium 8.5 mg/dL (8.6-10.3); Creatinine, Serum 1.12 mg/dL (0.67-1.17); Potassium 4.6 mmol/L (3.5-5.0); eGFR CKD-EPI 70.2 (>60)
[2023-12-19 07:41] LABS: ABS Basophils 0.1 10^3/uL (0.0-0.1); ABS Eosinophils 0.2 10^3/uL (0.0-0.5); ABS Lymphocytes 1.6 10^3/uL (1.0-4.8); ABS Monocytes 1.1 10^3/uL (0.0-1.1); ABS Neutrophils 9.3 10^3/uL (1.5-7.6); ABS Nucleated RBC 0.02 10^3/ul; Eosinophil % 1.5 %; Hemoglobin 14.4 g/dL (13.2-16.3); Lymphocyte % 12.9 %; Mean Corpuscular Hemoglobin 30.7 pg (27-33); Mean Corpuscular Hgb Conc 32.8 g/dL (31-36); Mean Corpuscular Volume 93.4 fL (80-97); Mean Platelet Volume 7.9 fL (7.5-11.2); Nucleated Red Blood Cells % 0.2 %/100WBC (0.0-0.8); Platelet Count 240 10^3/uL (150-450); Red Blood Count 4.71 10^6/uL (4.06-5.63); Red Cell Distribution Width 15.6 % (12-17); White Blood Count 12.3 10^3/uL (3.6-10.2)
[2023-12-19] MEDS: COVID VAC 23-24(12+)(Moderna) SYR 0.5 ML IM ONE (11:52)
[2023-12-19 15:26] LABS: Calcium 8.8 mg/dL (8.6-10.3); Creatinine, Serum 1.1 mg/dL (0.67-1.17); Potassium 4.3 mmol/L (3.5-5.0); eGFR CKD-EPI 71.8 (>60)
[2023-12-19 16:31] LABS: Urine Osmo 794 mOsm/kg (150-1150)
[2023-12-19 19:01] LABS: CRP High Sensitivity 16.75 mg/L (<2.00)
[2023-12-19 19:12] LABS: ABS Basophils 0.1 10^3/uL (0.0-0.1); ABS Eosinophils 0.1 10^3/uL (0.0-0.5); ABS Lymphocytes 1.4 10^3/uL (1.0-4.8); ABS Monocytes 1.1 10^3/uL (0.0-1.1); ABS Neutrophils 9.5 10^3/uL (1.5-7.6); ABS Nucleated RBC 0.01 10^3/ul; Hematocrit 40.7 % (38-53); Hemoglobin 13.8 g/dL (13.2-16.3); Lymphocyte % 11.6 %; Mean Corpuscular Hemoglobin 30.4 pg (27-33); Mean Corpuscular Hgb Conc 33.9 g/dL (31-36); Mean Corpuscular Volume 89.8 fL (80-97); Mean Platelet Volume 6.9 fL (7.5-11.2); Nucleated Red Blood Cells % 0.1 %/100WBC (0.0-0.8); Platelet Count 306 10^3/uL (150-450); Red Blood Count 4.53 10^6/uL (4.06-5.63); Red Cell Distribution Width 14.8 % (12-17); White Blood Count 12.3 10^3/uL (3.6-10.2)
[2023-12-19] MEDS: Polyethylene Glycol 3350 17 GM PACKET PO SCH (20:13)
[2023-12-19] MEDS: Gadoteridol (CONTRAST) 279.3 MG/ML 10 ML IV ONE (21:28)
[2023-12-20 08:33] LABS: ABS Basophils 0.1 10^3/uL (0.0-0.1); ABS Eosinophils 0.1 10^3/uL (0.0-0.5); ABS Lymphocytes 1.1 10^3/uL (1.0-4.8); ABS Monocytes 0.8 10^3/uL (0.0-1.1); ABS Neutrophils 8.2 10^3/uL (1.5-7.6); ABS Nucleated RBC 0.01 10^3/ul; Eosinophil % 0.9 %; Hemoglobin 14.3 g/dL (13.2-16.3); Lymphocyte % 10.6 %; Mean Corpuscular Hemoglobin 30.4 pg (27-33); Mean Corpuscular Hgb Conc 34.1 g/dL (31-36); Mean Corpuscular Volume 89.3 fL (80-97); Mean Platelet Volume 7.1 fL (7.5-11.2); Nucleated Red Blood Cells % 0.1 %/100WBC (0.0-0.8); Platelet Count 280 10^3/uL (150-450); Red Cell Distribution Width 14.4 % (12-17); White Blood Count 10.3 10^3/uL (3.6-10.2)
[2023-12-20 08:54] LABS: Calcium 8.5 mg/dL (8.6-10.3); Creatinine, Serum 0.89 mg/dL (0.67-1.17); Potassium 4.3 mmol/L (3.5-5.0); eGFR CKD-EPI 91.6 (>60)
[2023-12-20] MEDS ORDERED: Heparin 5000 UNITS/ML 1 mL VIAL IV SCH (21:00)
[2023-12-20] MEDS: Heparin DRIP 25,000 UNITS BAG 25,000 UNITS/250 ML BAG IV SCH (21:09)
[2023-12-21 06:11] LABS: ABS Basophils 0.1 10^3/uL (0.0-0.1); ABS Eosinophils 0.1 10^3/uL (0.0-0.5); ABS Monocytes 0.9 10^3/uL (0.0-1.1); ABS Neutrophils 6.6 10^3/uL (1.5-7.6); Eosinophil % 0.7 %; Hematocrit 41.6 % (38-53); Hemoglobin 14.3 g/dL (13.2-16.3); Lymphocyte % 11.4 %; Mean Corpuscular Hemoglobin 30.7 pg (27-33); Mean Corpuscular Hgb Conc 34.3 g/dL (31-36); Mean Corpuscular Volume 89.5 fL (80-97); Mean Platelet Volume 7.2 fL (7.5-11.2); Platelet Count 297 10^3/uL (150-450); Red Blood Count 4.65 10^6/uL (4.06-5.63); Red Cell Distribution Width 14.9 % (12-17); White Blood Count 8.6 10^3/uL (3.6-10.2)
[2023-12-21 06:29] LABS: Calcium 8.9 mg/dL (8.6-10.3); Creatinine, Serum 0.98 mg/dL (0.67-1.17); Potassium 4.4 mmol/L (3.5-5.0); eGFR CKD-EPI 82.4 (>60)
[2023-12-21 12:24] LABS: Osmolality Serum 276 mOsm/kg (275-295)
[2023-12-21 18:17] LABS: Urine Osmo 744 mOsm/kg (150-1150)
[2023-12-21 18:21] LABS: Urine Potassium Concentration 52.6 mmol/L
[2023-12-22 06:10] LABS: ABS Basophils 0.1 10^3/uL (0.0-0.1); ABS Lymphocytes 1.2 10^3/uL (1.0-4.8); ABS Neutrophils 5.7 10^3/uL (1.5-7.6); Eosinophil % 0.6 %; Hematocrit 40.1 % (38-53); Hemoglobin 13.7 g/dL (13.2-16.3); Mean Corpuscular Hemoglobin 30.4 pg (27-33); Mean Corpuscular Hgb Conc 34.2 g/dL (31-36); Mean Corpuscular Volume 88.9 fL (80-97); Mean Platelet Volume 7.2 fL (7.5-11.2); Platelet Count 264 10^3/uL (150-450); Red Blood Count 4.52 10^6/uL (4.06-5.63); Red Cell Distribution Width 15.2 % (12-17)
[2023-12-22 06:36] LABS: Calcium 8.2 mg/dL (8.6-10.3); Creatinine, Serum 0.87 mg/dL (0.67-1.17); Magnesium 2.1 mg/dL (1.9-2.7); Potassium 4.2 mmol/L (3.5-5.0); eGFR CKD-EPI 92.2 (>60)
[2023-12-22 09:01] LABS: C Reactive Protein 14.26 mg/L (<8.01)
[2023-12-22 16:19] LABS: Anaplasma phagocytophilum Negative (Negative); B. miyamotoi PCR, B Negative (Negative); Babesia divergens/MO-1 Negative (Negative); Babesia ducani Negative (Negative); Ehrlichia chaffeensis Negative (Negative); Ehrlichia ewingii/canis Negative (Negative); Ehrlichia muris eauclairensis Negative (Negative)
[2023-12-22 18:38] LABS: Urine Potassium Concentration 46.4 mmol/L
[2023-12-23 00:32] LABS: Urine Osmo 866 mOsm/kg (150-1150)
[2023-12-23 06:56] LABS: ABS Basophils 0.1 10^3/uL (0.0-0.1); ABS Eosinophils 0.1 10^3/uL (0.0-0.5); ABS Lymphocytes 1.2 10^3/uL (1.0-4.8); ABS Monocytes 0.9 10^3/uL (0.0-1.1); ABS Neutrophils 6.2 10^3/uL (1.5-7.6); ABS Nucleated RBC 0.01 10^3/ul; Hematocrit 39.2 % (38-53); Hemoglobin 13.3 g/dL (13.2-16.3); Lymphocyte % 14.1 %; Mean Corpuscular Hemoglobin 30.2 pg (27-33); Mean Corpuscular Hgb Conc 33.9 g/dL (31-36); Mean Corpuscular Volume 89.1 fL (80-97); Mean Platelet Volume 7.4 fL (7.5-11.2); Nucleated Red Blood Cells % 0.1 %/100WBC (0.0-0.8); Platelet Count 264 10^3/uL (150-450); Red Cell Distribution Width 14.9 % (12-17); White Blood Count 8.5 10^3/uL (3.6-10.2)
[2023-12-23 08:53] LABS: Calcium 8.2 mg/dL (8.6-10.3); Creatinine, Serum 0.89 mg/dL (0.67-1.17); Potassium 4.2 mmol/L (3.5-5.0); eGFR CKD-EPI 91.6 (>60)
[2023-12-23 09:15] LABS: Magnesium 2.2 mg/dL (1.9-2.7)
[2023-12-23 09:20] LABS: Osmolality Serum 271 mOsm/kg (275-295)
[2023-12-23 11:58] LABS: INR 1.25 (0.83-1.13)
[2023-12-23 14:29] LABS: Body Fluid Source Cerebral Spinal
[2023-12-23 14:45] LABS: CSF Glucose 46 mg/dL (40-70)
[2023-12-23 15:14] LABS: Body Fluid Appearance Clear; Body Fluid Color Colorless; Body Fluid Mono 6 %; Body Fluid Total Cells Counted 200
[2023-12-23 15:15] LABS: CSF Tube # 4
[2023-12-23 15:17] LABS: CSF Body Fluid WBC 40 /mcL
[2023-12-24 06:07] LABS: ABS Lymphocytes 1.3 10^3/uL (1.0-4.8); ABS Monocytes 1.1 10^3/uL (0.0-1.1); ABS Neutrophils 7.6 10^3/uL (1.5-7.6); ABS Nucleated RBC 0.01 10^3/ul; Eosinophil % 0.3 %; Hematocrit 41.9 % (38-53); Hemoglobin 14.6 g/dL (13.2-16.3); Lymphocyte % 12.7 %; Mean Corpuscular Hemoglobin 30.9 pg (27-33); Mean Corpuscular Hgb Conc 34.8 g/dL (31-36); Mean Corpuscular Volume 88.9 fL (80-97); Mean Platelet Volume 7.2 fL (7.5-11.2); Nucleated Red Blood Cells % 0.1 %/100WBC (0.0-0.8); Platelet Count 291 10^3/uL (150-450); Red Blood Count 4.71 10^6/uL (4.06-5.63); Red Cell Distribution Width 14.9 % (12-17)
[2023-12-24 06:18] LABS: Calcium 8.6 mg/dL (8.6-10.3); Creatinine, Serum 1.04 mg/dL (0.67-1.17); Magnesium 2.3 mg/dL (1.9-2.7); Potassium 4.5 mmol/L (3.5-5.0); eGFR CKD-EPI 76.8 (>60)
[2023-12-24] MEDS: Ure-Na 15 GM POWD.PACK PO SCH (13:56)
[2023-12-24] MEDS: dilTIAZem 30 MG TAB PO ONE (13:56)
[2023-12-25] MEDS: fentaNYL 100 mcg/2 ml 50 MCG/ML VIAL IV SLOW PU ONE (01:44)
[2023-12-25 06:41] LABS: ABS Basophils 0.1 10^3/uL (0.0-0.1); ABS Eosinophils 0.1 10^3/uL (0.0-0.5); ABS Lymphocytes 1.8 10^3/uL (1.0-4.8); ABS Monocytes 1.2 10^3/uL (0.0-1.1); ABS Neutrophils 7.3 10^3/uL (1.5-7.6); ABS Nucleated RBC 0.01 10^3/ul; Eosinophil % 0.6 %; Hematocrit 43.1 % (38-53); Hemoglobin 14.9 g/dL (13.2-16.3); Lymphocyte % 17.1 %; Mean Corpuscular Hgb Conc 34.5 g/dL (31-36); Mean Corpuscular Volume 89.7 fL (80-97); Mean Platelet Volume 7.2 fL (7.5-11.2); Nucleated Red Blood Cells % 0.1 %/100WBC (0.0-0.8); Platelet Count 297 10^3/uL (150-450); Red Blood Count 4.81 10^6/uL (4.06-5.63); White Blood Count 10.5 10^3/uL (3.6-10.2)
[2023-12-25 06:57] LABS: Calcium 8.7 mg/dL (8.6-10.3); Creatinine, Serum 1.12 mg/dL (0.67-1.17); Magnesium 2.4 mg/dL (1.9-2.7); Potassium 4.4 mmol/L (3.5-5.0); eGFR CKD-EPI 70.2 (>60)
[2023-12-25] MEDS: Senna TAB 8.6 mg TAB PO SCH (21:50)
[2023-12-26 06:08] LABS: ABS Basophils 0.1 10^3/uL (0.0-0.1); ABS Lymphocytes 1.7 10^3/uL (1.0-4.8); ABS Monocytes 1.3 10^3/uL (0.0-1.1); ABS Neutrophils 9.5 10^3/uL (1.5-7.6); ABS Nucleated RBC 0.01 10^3/ul; Eosinophil % 0.2 %; Hematocrit 44.6 % (38-53); Hemoglobin 15.2 g/dL (13.2-16.3); Lymphocyte % 13.5 %; Mean Corpuscular Hemoglobin 30.5 pg (27-33); Mean Corpuscular Volume 89.8 fL (80-97); Mean Platelet Volume 7.3 fL (7.5-11.2); Nucleated Red Blood Cells % 0.1 %/100WBC (0.0-0.8); Platelet Count 330 10^3/uL (150-450); Red Blood Count 4.96 10^6/uL (4.06-5.63); Red Cell Distribution Width 14.8 % (12-17); White Blood Count 12.6 10^3/uL (3.6-10.2)
[2023-12-26] MEDS: NS 0.9% 500 ml BAG 500 ML IV SCH (06:57)
[2023-12-26 07:57] LABS: Urine Osmo 913 mOsm/kg (150-1150)
[2023-12-26 10:00] LABS: Calcium 8.9 mg/dL (8.6-10.3); Creatinine, Serum 1.03 mg/dL (0.67-1.17); Potassium 4.5 mmol/L (3.5-5.0); eGFR CKD-EPI 77.7 (>60)
[2023-12-26 10:45] LABS: Osmolality Serum 285 mOsm/kg (275-295)
[2023-12-26] MEDS: Lactated Ringers 1000 ml BAG 1,000 ML IV ONE ×2 (12:44→13:41)
[2023-12-26] MEDS: Digoxin IV 0.5 MG/2 ML AMP (0.25 MG/ML) IV SLOW PU ONE ×2 (12:44→20:25)
[2023-12-26 13:25] LABS: HIV 4th Generation Nonreactive (Nonreactive)
[2023-12-26 17:29] LABS: B. burgdorferi PCR Negative (Negative); B. garinii/B. afzellii PCR Negative (Negative); Lyme Disease Source CSF
[2023-12-27 05:45] LABS: ABS Basophils 0.1 10^3/uL (0.0-0.1); ABS Eosinophils 0.1 10^3/uL (0.0-0.5); ABS Lymphocytes 1.7 10^3/uL (1.0-4.8); ABS Neutrophils 9.2 10^3/uL (1.5-7.6); ABS Nucleated RBC 0.01 10^3/ul; Eosinophil % 0.9 %; Hematocrit 44.1 % (38-53); Hemoglobin 14.6 g/dL (13.2-16.3); Lymphocyte % 14.2 %; Mean Corpuscular Hemoglobin 30.3 pg (27-33); Mean Corpuscular Hgb Conc 33.2 g/dL (31-36); Mean Corpuscular Volume 91.3 fL (80-97); Mean Platelet Volume 6.9 fL (7.5-11.2); Nucleated Red Blood Cells % 0.1 %/100WBC (0.0-0.8); Platelet Count 271 10^3/uL (150-450); Red Blood Count 4.83 10^6/uL (4.06-5.63); Red Cell Distribution Width 14.9 % (12-17); White Blood Count 12.1 10^3/uL (3.6-10.2)
[2023-12-27 06:24] LABS: Osmolality Serum 286 mOsm/kg (275-295)
[2023-12-27 06:27] LABS: Calcium 8.7 mg/dL (8.6-10.3); Creatinine, Serum 0.94 mg/dL (0.67-1.17); eGFR CKD-EPI 86.7 (>60)
[2023-12-27 06:42] LABS: Potassium 4.3 mmol/L (3.5-5.0)
[2023-12-27] MEDS ORDERED: Digoxin IV 0.5 MG/2 ML AMP (0.25 MG/ML) IV SLOW PU ONE (12:34)
[2023-12-27] MEDS: Digoxin IV 0.5 MG/2 ML AMP (0.25 MG/ML) IV SLOW PU ONE (12:54)
[2023-12-27] MEDS: Erythromycin OPTH OINT APPLIC OINT BOTH EYES SCH (18:06)
[2023-12-27 22:49] LABS: HSV 1 PCR, CSF Negative (Negative); HSV 2 PCR, CSF Negative (Negative)
[2023-12-28 07:52] LABS: ABS Basophils 0.1 10^3/uL (0.0-0.1); ABS Eosinophils 0.1 10^3/uL (0.0-0.5); ABS Lymphocytes 1.4 10^3/uL (1.0-4.8); ABS Neutrophils 9.9 10^3/uL (1.5-7.6); Eosinophil % 0.5 %; Hematocrit 42.7 % (38-53); Hemoglobin 14.4 g/dL (13.2-16.3); Lymphocyte % 11.2 %; Mean Corpuscular Hemoglobin 30.6 pg (27-33); Mean Corpuscular Hgb Conc 33.8 g/dL (31-36); Mean Corpuscular Volume 90.4 fL (80-97); Mean Platelet Volume 7.2 fL (7.5-11.2); Platelet Count 309 10^3/uL (150-450); Red Blood Count 4.72 10^6/uL (4.06-5.63); White Blood Count 12.4 10^3/uL (3.6-10.2)
[2023-12-28 09:13] LABS: Calcium 8.7 mg/dL (8.6-10.3); Creatinine, Serum 1.1 mg/dL (0.67-1.17); Potassium 4.4 mmol/L (3.5-5.0); eGFR CKD-EPI 71.8 (>60)
[2023-12-28] MEDS: Metoprolol Succinate XL 200 mg TAB PO SCH (09:34)
[2023-12-28 19:07] LABS: Enterovirus Source CSF
[2023-12-29 07:08] LABS: Hematocrit 45.5 % (38-53); Hemoglobin 14.8 g/dL (13.2-16.3); Mean Corpuscular Hemoglobin 31.2 pg (27-33); Mean Corpuscular Hgb Conc 32.5 g/dL (31-36); Mean Corpuscular Volume 95.8 fL (80-97); Red Blood Count 4.75 10^6/uL (4.06-5.63); Red Cell Distribution Width 16.2 % (12-17); White Blood Count 8.3 10^3/uL (3.6-10.2)
[2023-12-29 07:41] LABS: Potassium 4.5 mmol/L (3.5-5.0)
[2023-12-29 07:46] LABS: Calcium 8.4 mg/dL (8.6-10.3); Creatinine, Serum 1.03 mg/dL (0.67-1.17); eGFR CKD-EPI 77.7 (>60)
[2023-12-29 08:48] LABS: ABS Lymphocytes 1.5 10^3/uL (1.0-4.8); ABS Monocytes 0.6 10^3/uL (0.0-1.1); ABS Neutrophils 6.1 10^3/uL (1.5-7.6); ABS Nucleated RBC 0.01 10^3/ul; Eosinophil % 0.5 %; Lymphocyte % 17.9 %; Nucleated Red Blood Cells % 0.1 %/100WBC (0.0-0.8); Platelet Count Platelets clumped. 10^3/uL (150-450)
[2023-12-29 11:45] LABS: Varicella Zoster Source CSF; Varicella Zoster Virus PCR Negative (Negative)
[2023-12-30 05:38] LABS: ABS Basophils 0.1 10^3/uL (0.0-0.1); ABS Lymphocytes 1.7 10^3/uL (1.0-4.8); ABS Nucleated RBC 0.01 10^3/ul; Eosinophil % 0.2 %; Hematocrit 42.4 % (38-53); Hemoglobin 14.2 g/dL (13.2-16.3); Lymphocyte % 13.6 %; Mean Corpuscular Hemoglobin 30.1 pg (27-33); Mean Corpuscular Hgb Conc 33.5 g/dL (31-36); Nucleated Red Blood Cells % 0.1 %/100WBC (0.0-0.8); Platelet Count 356 10^3/uL (150-450); Red Blood Count 4.71 10^6/uL (4.06-5.63); Red Cell Distribution Width 14.9 % (12-17); White Blood Count 12.8 10^3/uL (3.6-10.2)
[2023-12-30 05:46] LABS: Calcium 8.6 mg/dL (8.6-10.3); Creatinine, Serum 0.88 mg/dL (0.67-1.17); Magnesium 2.2 mg/dL (1.9-2.7); Potassium 4.4 mmol/L (3.5-5.0); eGFR CKD-EPI 91.9 (>60)
[2023-12-30] MEDS ORDERED: Enoxaparin 100 MG/ML SYR SUBCUT SCH (09:00)
[2023-12-30] MEDS: D5NS 0.9% 1000 ml BAG 1,000 ML IV SCH (14:21)
[2023-12-30] MEDS ORDERED: Zosyn per Pharmacy NOTE FOLLOW UP SCH (16:00)
[2023-12-30] MEDS: ZOSYN 3.375 GM x ONE DOSE over 30 miuntes IV (18:23)
[2023-12-30] MEDS: ZOSYN 3.375 GM Q8H per EXTENDED INFUSION IV SCH (21:59)
[2023-12-31 05:54] LABS: ABS Basophils 0.1 10^3/uL (0.0-0.1); ABS Lymphocytes 1.3 10^3/uL (1.0-4.8); ABS Monocytes 0.8 10^3/uL (0.0-1.1); ABS Neutrophils 9.1 10^3/uL (1.5-7.6); Eosinophil % 0.4 %; Hematocrit 38.3 % (38-53); Hemoglobin 12.8 g/dL (13.2-16.3); Lymphocyte % 11.7 %; Mean Corpuscular Hemoglobin 30.3 pg (27-33); Mean Corpuscular Hgb Conc 33.5 g/dL (31-36); Mean Corpuscular Volume 90.5 fL (80-97); Mean Platelet Volume 6.8 fL (7.5-11.2); Platelet Count 270 10^3/uL (150-450); Red Blood Count 4.24 10^6/uL (4.06-5.63); Red Cell Distribution Width 15.2 % (12-17); White Blood Count 11.3 10^3/uL (3.6-10.2)
[2023-12-31 06:26] LABS: Creatinine, Serum 0.87 mg/dL (0.67-1.17); eGFR CKD-EPI 92.2 (>60)
[2024-01-01] MEDS: Acetaminophen IV 1 GM/100ML 1,000 MG/100 ML BAG IV ONE (04:40)
[2024-01-01 06:04] LABS: ABS Basophils 0.1 10^3/uL (0.0-0.1); ABS Eosinophils 0.1 10^3/uL (0.0-0.5); ABS Lymphocytes 1.1 10^3/uL (1.0-4.8); ABS Monocytes 0.6 10^3/uL (0.0-1.1); ABS Neutrophils 7.9 10^3/uL (1.5-7.6); ABS Nucleated RBC 0.01 10^3/ul; Hematocrit 37.2 % (38-53); Hemoglobin 12.5 g/dL (13.2-16.3); Lymphocyte % 11.4 %; Mean Corpuscular Hemoglobin 30.2 pg (27-33); Mean Corpuscular Hgb Conc 33.6 g/dL (31-36); Mean Corpuscular Volume 89.7 fL (80-97); Mean Platelet Volume 6.8 fL (7.5-11.2); Nucleated Red Blood Cells % 0.1 %/100WBC (0.0-0.8); Platelet Count 284 10^3/uL (150-450); Red Blood Count 4.15 10^6/uL (4.06-5.63); Red Cell Distribution Width 15.2 % (12-17); White Blood Count 9.7 10^3/uL (3.6-10.2)
[2024-01-01 06:27] LABS: Calcium 8.3 mg/dL (8.6-10.3); Creatinine, Serum 0.77 mg/dL (0.67-1.17); Potassium 3.5 mmol/L (3.5-5.0); eGFR CKD-EPI 95.7 (>60)
[2024-01-01] MEDS: Potassium Chlor 20 meq TAB.ER PO ONE (14:18)
[2024-01-01] MEDS: Potassium EFFERVES 25 meq TAB PO ONE (20:57)
[2024-01-02] MEDS: Potassium Chlor 20 meq TAB.ER PO ONE (08:47)
[2024-01-03 05:51] LABS: ABS Basophils 0.1 10^3/uL (0.0-0.1); ABS Eosinophils 0.1 10^3/uL (0.0-0.5); ABS Lymphocytes 1.5 10^3/uL (1.0-4.8); ABS Monocytes 0.8 10^3/uL (0.0-1.1); ABS Neutrophils 8.2 10^3/uL (1.5-7.6); ABS Nucleated RBC 0.01 10^3/ul; Eosinophil % 0.7 %; Hematocrit 38.2 % (38-53); Hemoglobin 13.1 g/dL (13.2-16.3); Lymphocyte % 13.9 %; Mean Corpuscular Hemoglobin 30.8 pg (27-33); Mean Corpuscular Hgb Conc 34.4 g/dL (31-36); Mean Corpuscular Volume 89.4 fL (80-97); Mean Platelet Volume 6.5 fL (7.5-11.2); Nucleated Red Blood Cells % 0.1 %/100WBC (0.0-0.8); Platelet Count 299 10^3/uL (150-450); Red Blood Count 4.27 10^6/uL (4.06-5.63); Red Cell Distribution Width 15.2 % (12-17); White Blood Count 10.6 10^3/uL (3.6-10.2)
[2024-01-03 06:29] LABS: Albumin 3.2 g/dL (3.2-5.2); Albumin/Globulin Ratio 1.3 (1-3); Calcium 8.3 mg/dL (8.6-10.3); Creatinine, Serum 0.72 mg/dL (0.67-1.17); Globulin 2.5 g/dL (2-4); Potassium 4.1 mmol/L (3.5-5.0); Total Bilirubin 0.6 mg/dL (0.2-1.0); Total Protein 5.7 g/dL (6.4-8.9); eGFR CKD-EPI 97.7 (>60)
[2024-01-03 15:06] LABS: Body Fluid Source Cerebral Spinal
[2024-01-03 15:21] LABS: Body Fluid Appearance Clear; Body Fluid Color Colorless; CSF Glucose 36 mg/dL (40-70); CSF Tube # 4
[2024-01-03 15:54] LABS: Body Fluid Mono 22 %; Body Fluid Total Cells Counted 200
[2024-01-03 15:59] LABS: CSF Body Fluid WBC 182 /mcL
[2024-01-03] MEDS ORDERED: methylPREDNISolone SOD SUCC 1000 MG ML VIAL IVPB ONE (16:40)
[2024-01-03] MEDS: methylPREDNISolone SOD SUCC 1,000 MG in NS 0.9% 250 ml 250 ML IVPB ONE (17:30)
[2024-01-03] MEDS: Vancomycin 2,000 MG in NS 0.9% 500 ml BAG 500 ML IVPB ONE (20:49)
[2024-01-03] MEDS: cefTRIAXone 2 gm/50 mL D5W 2 GM/50 ML BAG IV SCH (20:51)
[2024-01-03] MEDS ORDERED: Vancomycin per Pharmacy 1 EA NOTE FOLLOW UP SCH (21:00)
[2024-01-03] MEDS: Ampicillin ADVAN 2 GM in NS 0.9% 100 ml BAG 100 ML IVPB SCH (21:49)
[2024-01-04] MEDS: Vancomycin 1000 MG in NS 0.9% 250 ML IVPB SCH (05:19)
[2024-01-04] MEDS: Digoxin IV 0.5 MG/2 ML AMP (0.25 MG/ML) IV SLOW PU ONE (05:33)
[2024-01-04 07:01] LABS: ABS Lymphocytes 0.6 10^3/uL (1.0-4.8); ABS Monocytes 0.2 10^3/uL (0.0-1.1); Hematocrit 43.2 % (38-53); Hemoglobin 14.6 g/dL (13.2-16.3); Lymphocyte % 4.7 %; Mean Corpuscular Hemoglobin 30.3 pg (27-33); Mean Corpuscular Hgb Conc 33.7 g/dL (31-36); Mean Corpuscular Volume 89.7 fL (80-97); Platelet Count 296 10^3/uL (150-450); Red Blood Count 4.81 10^6/uL (4.06-5.63); Red Cell Distribution Width 14.9 % (12-17); White Blood Count 11.7 10^3/uL (3.6-10.2)
[2024-01-04] MEDS ORDERED: NS 0.9% IVPB SCH (08:00)
[2024-01-04] MEDS ORDERED: ACYCLOVIR IVPB SCH (08:00)
[2024-01-04 09:03] LABS: Calcium 8.4 mg/dL (8.6-10.3); Creatinine, Serum 0.6 mg/dL (0.67-1.17); Potassium 4.2 mmol/L (3.5-5.0); eGFR CKD-EPI 103.2 (>60)
[2024-01-04] MEDS: ACYCLOVIR IVPB SCH (09:04)
[2024-01-04] MEDS: NS 0.9% IVPB SCH (09:04)
[2024-01-04] MEDS ORDERED: Metoprolol Tartrate 5 mg VIAL 5 ml VIAL (1 mg/ml) IV SCH (11:00)
[2024-01-04] MEDS: Metoprolol Tartrate 5 mg VIAL 5 ml VIAL (1 mg/ml) IV ONE (11:04)
[2024-01-04] MEDS: Metoprolol Tartrate 5 mg VIAL 5 ml VIAL (1 mg/ml) IV SCH (11:18)
[2024-01-04 13:00] LABS: Calcium 8.2 mg/dL (8.6-10.3); Creatinine, Serum 0.62 mg/dL (0.67-1.17); Potassium 3.8 mmol/L (3.5-5.0); eGFR CKD-EPI 102.2 (>60)
[2024-01-04] MEDS: methylPREDNISolone SOD SUCC 500 MG in NS 0.9% 100 ml BAG 100 ML IVPB ONE (15:19)
[2024-01-04] MEDS ORDERED: Metoprolol Tartrate 5 mg VIAL 5 ml VIAL (1 mg/ml) IV PRN ×2 (16:52→17:05)
[2024-01-05 07:36] LABS: Vancomycin Trough 16.7 mcg/mL
[2024-01-05 08:39] LABS: ABS Lymphocytes 0.7 10^3/uL (1.0-4.8); ABS Monocytes 0.4 10^3/uL (0.0-1.1); ABS Neutrophils 10.7 10^3/uL (1.5-7.6); ABS Nucleated RBC 0.01 10^3/ul; Hematocrit 41.3 % (38-53); Hemoglobin 13.8 g/dL (13.2-16.3); Mean Corpuscular Hemoglobin 30.3 pg (27-33); Mean Corpuscular Hgb Conc 33.5 g/dL (31-36); Mean Corpuscular Volume 90.5 fL (80-97); Mean Platelet Volume 7.1 fL (7.5-11.2); Nucleated Red Blood Cells % 0.1 %/100WBC (0.0-0.8); Platelet Count 284 10^3/uL (150-450); Red Blood Count 4.56 10^6/uL (4.06-5.63); Red Cell Distribution Width 14.9 % (12-17); White Blood Count 11.8 10^3/uL (3.6-10.2)
[2024-01-05 08:40] LABS: Calcium 8.4 mg/dL (8.6-10.3); Creatinine, Serum 0.6 mg/dL (0.67-1.17); eGFR CKD-EPI 103.2 (>60)
[2024-01-05] MEDS: Vancomycin Trough Check NOTE FOLLOW UP ONE (08:53)
[2024-01-05 10:44] LABS: Digoxin 0.7 ng/ml (0.8-2.0)
[2024-01-05 14:11] LABS: CSF VDRL Negative (Negative)
[2024-01-05] MEDS: methylPREDNISolone SOD SUCC 1000 MG ML VIAL IVPB ONE (17:58)
[2024-01-05] MEDS: methylPREDNISolone SOD SUCC 1,000 MG in NS 0.9% 100 ml BAG 100 ML IVPB ONE (19:17)
[2024-01-05 22:29] LABS: HSV 1 PCR, CSF Negative (Negative); HSV 2 PCR, CSF Negative (Negative)
[2024-01-06 06:18] LABS: ABS Lymphocytes 0.4 10^3/uL (1.0-4.8); ABS Monocytes 0.1 10^3/uL (0.0-1.1); ABS Neutrophils 9.4 10^3/uL (1.5-7.6); ABS Nucleated RBC 0.01 10^3/ul; Hematocrit 39.1 % (38-53); Hemoglobin 13.2 g/dL (13.2-16.3); Lymphocyte % 4.5 %; Mean Corpuscular Hemoglobin 30.5 pg (27-33); Mean Corpuscular Hgb Conc 33.8 g/dL (31-36); Mean Corpuscular Volume 90.3 fL (80-97); Mean Platelet Volume 6.7 fL (7.5-11.2); Nucleated Red Blood Cells % 0.1 %/100WBC (0.0-0.8); Platelet Count 259 10^3/uL (150-450); Red Blood Count 4.33 10^6/uL (4.06-5.63); Red Cell Distribution Width 15.3 % (12-17)
[2024-01-06 06:56] LABS: Calcium 8.2 mg/dL (8.6-10.3); Creatinine, Serum 0.56 mg/dL (0.67-1.17); Magnesium 2.3 mg/dL (1.9-2.7); eGFR CKD-EPI 105.4 (>60)
[2024-01-07 10:36] LABS: .Transferrin 181 mg/dL (203-362); Anion Gap 9 mmol/L (2-16); Blood Urea Nitrogen 20 mg/dL (6-24); CO2 Carbon Dioxide 23 mmol/L (22-32); Calcium 8.4 mg/dL (8.6-10.3); Chloride 107 mmol/L (101-111); Creatinine, Serum 0.61 mg/dL (0.67-1.17); Glucose 109 mg/dL (70-100); Sodium 139 mmol/L (135-145); Total Iron Binding Capacity 253 mcg/dL (250-450); eGFR CKD-EPI 102.7 (>60)
[2024-01-07 10:37] LABS: Ferritin 127.2 ng/mL (24-336)
[2024-01-07 10:38] LABS: Potassium, Whole Blood 3.3 mmol/L (3.4-4.5)
[2024-01-07 16:45] LABS: Magnesium 2.4 mg/dL (1.9-2.7)
[2024-01-07] MEDS: Potassium Chlor 20 meq TAB.ER PO ONE ×2 (17:28→21:14)
[2024-01-08 06:22] LABS: Calcium 8.2 mg/dL (8.6-10.3); Creatinine, Serum 0.69 mg/dL (0.67-1.17); Magnesium 2.2 mg/dL (1.9-2.7); eGFR CKD-EPI 98.9 (>60)
[2024-01-08] MEDS: Metoprolol Tartrate 5 mg VIAL 5 ml VIAL (1 mg/ml) IV PRN (18:30)
[2024-01-08] MEDS: Morphine 2 MG/ML SYRINGE IV PRN (20:35)
[2024-01-09] MEDS: Metoprolol Tartrate 5 mg VIAL 5 ml VIAL (1 mg/ml) IV PRN (06:10)
[2024-01-09] MEDS: NS 0.9% 1000 ml BAG 1,000 ML IV ONE (09:41)
[2024-01-09] MEDS: fentaNYL 250 mcg/5 ml 50 MCG/ML 5 ml VIAL (250 MCG) ONE (10:18)
[2024-01-09] MEDS: fentaNYL 100 mcg/2 ml 50 MCG/ML VIAL IV SLOW PU ONE (10:18)
[2024-01-09] MEDS: Midazolam 10 mg/10 ml VIAL 1 mg/ml 10 ml VIAL (10 mg) ONE (10:18)
[2024-01-09] MEDS: Midazolam 10 mg/10 ml VIAL 1 mg/ml 10 ml VIAL (10 mg) IV SLOW PU ONE (10:19)
[2024-01-10 06:12] LABS: Creatinine, Serum 0.53 mg/dL (0.67-1.17); Magnesium 2.1 mg/dL (1.9-2.7); Potassium 3.9 mmol/L (3.5-5.0); eGFR CKD-EPI 107.1 (>60)
[2024-01-10] MEDS ORDERED: Sulfur Hexaflouride MICROSPHR 25 MG VIAL ONE (08:10)
[2024-01-10 15:32] VITALS: BP 155/92
[2024-01-12 10:29] LABS: AGNA-1, CSF Negative (Negative); ANNA-1, CSF Negative (Negative); ANNA-2, CSF Negative (Negative); ANNA-3, CSF Negative (Negative); Amphiphysin Ab, CSF Negative (Negative); CRMP-5-IgG, CSF Negative (Negative); IFA Notes None.; PCA-1, CSF Negative (Negative); PCA-2, CSF Negative (Negative); PCA-Tr, CSF Negative (Negative)
== END 2024-01-10 15:17 | DRG 70 ==
LOC: ED 09:50 → EDHOLD 09:50 → MED 17:10 → MEDTELE 12-17 15:09 → SUATTDRO 12-18 10:50 → MEDTELE 01-02 16:35 → ICU 01-09 09:11 → MEDTELE 01-09 11:52
PROVIDERS: ADMIT Hospitalist; ATTEND Hospitalist

== ENCOUNTER 2024-01-14 12:39 | Inpatient (IN) ==
[2024-01-14 13:02] LABS: ABS Lymphocytes 0.6 10^3/uL (1.0-4.8); ABS Monocytes 0.7 10^3/uL (0.0-1.1); ABS Neutrophils 14.1 10^3/uL (1.5-7.6); ABS Nucleated RBC 0.01 10^3/ul; Eosinophil % 0.1 %; Hematocrit 41.8 % (38-53); Hemoglobin 14.2 g/dL (13.2-16.3); Mean Corpuscular Hemoglobin 31.1 pg (27-33); Mean Corpuscular Hgb Conc 33.9 g/dL (31-36); Mean Corpuscular Volume 91.6 fL (80-97); Mean Platelet Volume 6.6 fL (7.5-11.2); Platelet Count 248 10^3/uL (150-450); Red Blood Count 4.57 10^6/uL (4.06-5.63); Red Cell Distribution Width 16.5 % (12-17); White Blood Count 15.5 10^3/uL (3.6-10.2)
[2024-01-14 13:14] LABS: Activated Partial Thrombo Time 38.4 seconds (26.0-38.0); INR 1.54 (0.83-1.13)
[2024-01-14 13:29] LABS: Albumin 3.2 g/dL (3.2-5.2); Albumin/Globulin Ratio 1.3 (1-3); Calcium 7.9 mg/dL (8.6-10.3); Creatinine, Serum 0.53 mg/dL (0.67-1.17); Globulin 2.5 g/dL (2-4); Magnesium 2.1 mg/dL (1.9-2.7); Potassium 4.2 mmol/L (3.5-5.0); Total Bilirubin 0.7 mg/dL (0.2-1.0); Total Protein 5.7 g/dL (6.4-8.9); eGFR CKD-EPI 107.1 (>60)
[2024-01-14 13:44] LABS: TSH Ultra Thyroid Stim Horm 2.34 mcIU/mL (0.34-5.60)
[2024-01-14] MEDS: NS 0.9% 1000 ml BAG 1,000 ML IV ONE (13:55)
[2024-01-14 13:59] LABS: Urine Appearance Clear; Urine Bilirubin Negative (Negative); Urine Blood Negative (Negative); Urine Color Light-Yellow; Urine Glucose 4+ (>=1000 mg/dL) (Negative); Urine Ketones Trace (Negative); Urine Nitrite Negative (Negative); Urine Protein Negative (Negative); Urine Specific Gravity 1.021 (1.002-1.030); Urine Urobilinogen Negative (Negative)
[2024-01-14] MEDS: Piperacillin/Tazobac 3.375 BAG 3.375 GM/100 ML BAG IV ONE (14:18)
[2024-01-14 14:34] LABS: High Sensitivity Troponin 1 Hr 15 pg/mL (<20)
[2024-01-15 04:43] LABS: ABS Basophils 0.1 10^3/uL (0.0-0.1); ABS Lymphocytes 1.5 10^3/uL (1.0-4.8); ABS Neutrophils 12.3 10^3/uL (1.5-7.6); ABS Nucleated RBC 0.01 10^3/ul; Eosinophil % 0.2 %; Hemoglobin 13.7 g/dL (13.2-16.3); Lymphocyte % 9.7 %; Mean Corpuscular Hemoglobin 30.6 pg (27-33); Mean Corpuscular Hgb Conc 33.3 g/dL (31-36); Mean Platelet Volume 6.7 fL (7.5-11.2); Platelet Count 262 10^3/uL (150-450); Red Blood Count 4.46 10^6/uL (4.06-5.63); Red Cell Distribution Width 16.6 % (12-17); White Blood Count 14.9 10^3/uL (3.6-10.2)
[2024-01-15 05:34] LABS: Albumin 3.2 g/dL (3.2-5.2); Albumin/Globulin Ratio 1.4 (1-3); Calcium 7.9 mg/dL (8.6-10.3); Creatinine, Serum 0.51 mg/dL (0.67-1.17); Globulin 2.3 g/dL (2-4); Potassium 4.1 mmol/L (3.5-5.0); Total Bilirubin 0.7 mg/dL (0.2-1.0); Total Protein 5.5 g/dL (6.4-8.9); eGFR CKD-EPI 108.4 (>60)
[2024-01-15] MEDS: Cholecalciferol (VIT D3) 1,000 unit TAB PO SCH (08:21)
[2024-01-15] MEDS: Metoprolol Tartrate 5 mg VIAL 5 ml VIAL (1 mg/ml) IV PRN ×2 (12:37→17:24)
[2024-01-15] MEDS: LOVASTATIN 10 MG PO SCH (16:20)
[2024-01-15] MEDS ORDERED: Metoprolol Tartrate 5 mg VIAL 5 ml VIAL (1 mg/ml) IV PRN (18:00)
[2024-01-16 08:20] LABS: ABS Monocytes 0.8 10^3/uL (0.0-1.1); ABS Neutrophils 14.3 10^3/uL (1.5-7.6); Eosinophil % 0.1 %; Hematocrit 40.7 % (38-53); Lymphocyte % 6.4 %; Mean Corpuscular Hemoglobin 31.6 pg (27-33); Mean Corpuscular Hgb Conc 34.4 g/dL (31-36); Mean Corpuscular Volume 91.8 fL (80-97); Mean Platelet Volume 6.7 fL (7.5-11.2); Platelet Count 251 10^3/uL (150-450); Red Blood Count 4.43 10^6/uL (4.06-5.63); Red Cell Distribution Width 16.6 % (12-17); White Blood Count 16.3 10^3/uL (3.6-10.2)
[2024-01-16 08:59] LABS: ALT 81 U/L (7-52); Albumin 3.3 g/dL (3.2-5.2); Albumin/Globulin Ratio 1.2 (1-3); Alkaline Phosphatase 52 U/L (35-149); Anion Gap 10 mmol/L (2-16); Blood Urea Nitrogen 21 mg/dL (6-24); CO2 Carbon Dioxide 23 mmol/L (22-32); Calcium 8.1 mg/dL (8.6-10.3); Chloride 100 mmol/L (101-111); Creatinine, Serum 0.46 mg/dL (0.67-1.17); Globulin 2.7 g/dL (2-4); Glucose 100 mg/dL (70-100); Sodium 133 mmol/L (135-145); Total Bilirubin 0.7 mg/dL (0.2-1.0); eGFR CKD-EPI 111.8 (>60)
[2024-01-16 09:45] LABS: Vitamin B12 585 pg/mL (180-914)
[2024-01-16] MEDS: Gadoteridol (CONTRAST) 279.3 MG/ML 10 ML IV ONE (21:33)
[2024-01-16] MEDS: Metoprolol Tartrate 5 mg VIAL 5 ml VIAL (1 mg/ml) IV ONE (22:15)
[2024-01-17] MEDS ORDERED: Amiodarone 150 mg IVPREMIX 150 MG/100 ML BAG IV ONE (03:00)
[2024-01-17 03:05] LABS: ABS Basophils 0.1 10^3/uL (0.0-0.1); ABS Lymphocytes 1.6 10^3/uL (1.0-4.8); ABS Monocytes 0.9 10^3/uL (0.0-1.1); ABS Neutrophils 13.4 10^3/uL (1.5-7.6); Eosinophil % 0.1 %; Hematocrit 40.8 % (38-53); Hemoglobin 13.6 g/dL (13.2-16.3); Mean Corpuscular Hemoglobin 30.6 pg (27-33); Mean Corpuscular Hgb Conc 33.3 g/dL (31-36); Mean Corpuscular Volume 91.8 fL (80-97); Mean Platelet Volume 6.7 fL (7.5-11.2); Platelet Count 269 10^3/uL (150-450); Red Blood Count 4.44 10^6/uL (4.06-5.63); Red Cell Distribution Width 16.6 % (12-17)
[2024-01-17 03:22] LABS: Albumin 3.3 g/dL (3.2-5.2); Albumin/Globulin Ratio 1.4 (1-3); Calcium 8.1 mg/dL (8.6-10.3); Creatinine, Serum 0.52 mg/dL (0.67-1.17); Globulin 2.3 g/dL (2-4); Phosphorus 3.1 mg/dL (2.5-5.0); Potassium 3.9 mmol/L (3.5-5.0); Total Bilirubin 0.7 mg/dL (0.2-1.0); Total Protein 5.6 g/dL (6.4-8.9); eGFR CKD-EPI 107.8 (>60)
[2024-01-17] MEDS: cefTRIAXone 1 gm/50 mL D5W 1 GM/50 ML BAG IV ONE (03:42)
[2024-01-17] MEDS: Lactated Ringers 1000 ml BAG 750 ML IV ONE (04:34)
[2024-01-17 06:22] LABS: ABS Lymphocytes 1.4 10^3/uL (1.0-4.8); ABS Monocytes 0.9 10^3/uL (0.0-1.1); ABS Neutrophils 12.3 10^3/uL (1.5-7.6); Eosinophil % 0.2 %; Hematocrit 39.3 % (38-53); Hemoglobin 13.2 g/dL (13.2-16.3); Lymphocyte % 9.3 %; Mean Corpuscular Hemoglobin 30.9 pg (27-33); Mean Corpuscular Hgb Conc 33.6 g/dL (31-36); Mean Platelet Volume 6.8 fL (7.5-11.2); Platelet Count 258 10^3/uL (150-450); Red Blood Count 4.27 10^6/uL (4.06-5.63); Red Cell Distribution Width 16.5 % (12-17); White Blood Count 14.6 10^3/uL (3.6-10.2)
[2024-01-17 06:57] LABS: Albumin 3.2 g/dL (3.2-5.2); Albumin/Globulin Ratio 1.4 (1-3); Calcium 7.9 mg/dL (8.6-10.3); Creatinine, Serum 0.49 mg/dL (0.67-1.17); Globulin 2.3 g/dL (2-4); Magnesium 1.9 mg/dL (1.9-2.7); Potassium 3.9 mmol/L (3.5-5.0); Total Bilirubin 0.7 mg/dL (0.2-1.0); Total Protein 5.5 g/dL (6.4-8.9); eGFR CKD-EPI 109.7 (>60)
[2024-01-17 07:02] LABS: Activated Partial Thrombo Time 34.9 seconds (26.0-38.0); INR 1.36 (0.83-1.13)
[2024-01-17] MEDS ORDERED: Midazolam 5 mg/5 ml VIAL 1 mg/ml 5 ml VIAL (5 mg) ONE ×2 (08:12→08:14)
[2024-01-17] MEDS ORDERED: fentaNYL 100 mcg/2 ml 50 MCG/ML VIAL ONE ×2 (08:12→08:13)
[2024-01-17] MEDS ORDERED: Naloxone 0.4 mg VIAL 0.4 mg/ml 1 ml VIAL ONE (08:12)
[2024-01-17] MEDS ORDERED: Flumazenil 0.5 mg/5 ml 0.1 MG/ML 5 ml VIAL ONE (08:12)
[2024-01-17] MEDS: Midazolam 10 mg/10 ml VIAL 1 mg/ml 10 ml VIAL (10 mg) IV SLOW PU ONE (10:05)
[2024-01-17] MEDS: fentaNYL 100 mcg/2 ml 50 MCG/ML VIAL IV SLOW PU ONE (10:05)
[2024-01-17] MEDS: Potassium Chloride LIQUID 20 MEQ/15 ML LIQUID PO ONE (21:23)
[2024-01-18 07:42] LABS: ABS Lymphocytes 0.9 10^3/uL (1.0-4.8); ABS Monocytes 0.7 10^3/uL (0.0-1.1); ABS Neutrophils 14.5 10^3/uL (1.5-7.6); Eosinophil % 0.2 %; Hemoglobin 13.1 g/dL (13.2-16.3); Lymphocyte % 5.8 %; Mean Corpuscular Hemoglobin 30.9 pg (27-33); Mean Corpuscular Hgb Conc 33.6 g/dL (31-36); Platelet Count 234 10^3/uL (150-450); Red Blood Count 4.24 10^6/uL (4.06-5.63); Red Cell Distribution Width 16.4 % (12-17); White Blood Count 16.2 10^3/uL (3.6-10.2)
[2024-01-18 07:58] LABS: Albumin 3.3 g/dL (3.2-5.2); Albumin/Globulin Ratio 1.4 (1-3); Calcium 8.1 mg/dL (8.6-10.3); Creatinine, Serum 0.4 mg/dL (0.67-1.17); Globulin 2.3 g/dL (2-4); Magnesium 1.9 mg/dL (1.9-2.7); Total Bilirubin 0.8 mg/dL (0.2-1.0); Total Protein 5.6 g/dL (6.4-8.9); eGFR CKD-EPI 116.6 (>60)
[2024-01-19 05:47] LABS: Hematocrit 41.9 % (38-53); Hemoglobin 13.8 g/dL (13.2-16.3); Mean Corpuscular Hemoglobin 30.4 pg (27-33); Mean Corpuscular Volume 92.1 fL (80-97); Mean Platelet Volume 6.4 fL (7.5-11.2); Platelet Count 282 10^3/uL (150-450); Red Blood Count 4.55 10^6/uL (4.06-5.63); Red Cell Distribution Width 16.6 % (12-17)
[2024-01-19 05:52] LABS: PCO2 Arterial 31 mmHg (35-45)
[2024-01-19 05:54] LABS: PO2 Arterial 59 mmHg (80-100)
[2024-01-19 06:27] LABS: Albumin 3.3 g/dL (3.2-5.2); Albumin/Globulin Ratio 1.5 (1-3); Calcium 8.3 mg/dL (8.6-10.3); Creatinine, Serum 0.38 mg/dL (0.67-1.17); Globulin 2.2 g/dL (2-4); Magnesium 1.8 mg/dL (1.9-2.7); Potassium 3.9 mmol/L (3.5-5.0); Total Bilirubin 0.9 mg/dL (0.2-1.0); Total Protein 5.5 g/dL (6.4-8.9); eGFR CKD-EPI 118.5 (>60)
[2024-01-19] MEDS ORDERED: Zosyn per Pharmacy NOTE FOLLOW UP SCH (07:00)
[2024-01-19 07:31] LABS: ABS Basophils 0.1 10^3/uL (0.0-0.1); ABS Monocytes 0.8 10^3/uL (0.0-1.1); ABS Neutrophils 20.2 10^3/uL (1.5-7.6); ABS Nucleated RBC 0.02 10^3/ul; Eosinophil % 0.1 %; Lymphocyte % 4.5 %; Nucleated Red Blood Cells % 0.1 %/100WBC (0.0-0.8)
[2024-01-19] MEDS: Lactated Ringers 1000 ml BAG 1,000 ML IV ONE (07:43)
[2024-01-19] MEDS: Magnesium Sulfate 2 gm BAG 2 GM/50 ML BAG IVPB ONE (08:08)
[2024-01-19] MEDS: Piperacillin/Tazobac 3.375 BAG 3.375 GM/100 ML BAG IV ONE ×2 (09:51→10:10)
[2024-01-19] MEDS: Pantoprazole VIAL 40 MG VIAL IV SCH (12:39)
[2024-01-19 14:11] LABS: Phosphorus 3.3 mg/dL (2.5-5.0)
[2024-01-19] MEDS: ZOSYN 3.375 GM Q8H per EXTENDED INFUSION IV SCH (14:26)
[2024-01-20 05:46] LABS: Hematocrit 39.7 % (38-53); Hemoglobin 13.5 g/dL (13.2-16.3); Mean Corpuscular Hemoglobin 31.3 pg (27-33); Mean Corpuscular Hgb Conc 34.1 g/dL (31-36); Mean Corpuscular Volume 91.9 fL (80-97); Mean Platelet Volume 6.9 fL (7.5-11.2); Platelet Count 258 10^3/uL (150-450); Red Blood Count 4.32 10^6/uL (4.06-5.63); Red Cell Distribution Width 16.7 % (12-17); White Blood Count 24.3 10^3/uL (3.6-10.2)
[2024-01-20 06:19] LABS: ABS Lymphocytes 0.7 10^3/uL (1.0-4.8); ABS Monocytes 0.8 10^3/uL (0.0-1.1); ABS Neutrophils 22.8 10^3/uL (1.5-7.6)
[2024-01-20 06:24] LABS: Albumin 3.1 g/dL (3.2-5.2); Albumin/Globulin Ratio 1.3 (1-3); Calcium 8.5 mg/dL (8.6-10.3); Creatinine, Serum 0.52 mg/dL (0.67-1.17); Globulin 2.3 g/dL (2-4); Magnesium 2.2 mg/dL (1.9-2.7); Potassium 3.7 mmol/L (3.5-5.0); Total Bilirubin 0.8 mg/dL (0.2-1.0); Total Protein 5.4 g/dL (6.4-8.9); eGFR CKD-EPI 107.8 (>60)
[2024-01-20] MEDS ORDERED: Lidocaine 2% PF 5 ML VIAL ONE (09:26)
[2024-01-20] MEDS ORDERED: Propofol 10 MG/ML 20 ML BTL ONE (09:26)
[2024-01-20] MEDS: Phenylephrine 40 mcg/mL 10mL (400mcg) SYRINGE ONE (13:01)
[2024-01-20] MEDS: Norepinephrine 4 MG/250mL D5W 4,000 MCG/250 ML BAG IV SCH (17:27)
[2024-01-20] MEDS: Metoprolol Tartrate 5 mg VIAL 5 ml VIAL (1 mg/ml) IV ONE (17:35)
[2024-01-20] MEDS: Esmolol 10 MG/ML IVPREMIX 2,500 MG/250 ML BAG IV SCH ×2 (18:32→21:18)
[2024-01-20] MEDS ORDERED: Amiodarone 360 MG IVPREMIX 360 MG/200 ML BAG IV SCH (19:20)
[2024-01-20 20:11] LABS: Venous Bicarbonate HCO3 22.1 mmol/L (24-28)
[2024-01-20] MEDS: Esmolol 10 MG/ML IVPREMIX 2,500 MG/250 ML BAG IV ONE (22:11)
[2024-01-20] MEDS: Amiodarone 150 mg IVPREMIX 150 MG/100 ML BAG IV ONE (23:06)
[2024-01-21 00:49] LABS: PCO2 Arterial 32 mmHg (35-45); PO2 Arterial 165 mmHg (80-100)
[2024-01-21] MEDS ORDERED: Amiodarone 360 MG IVPREMIX 360 MG/200 ML BAG IV SCH (01:20)
[2024-01-21 05:36] LABS: Hematocrit 39.5 % (38-53); Hemoglobin 12.9 g/dL (13.2-16.3); Mean Corpuscular Hemoglobin 30.6 pg (27-33); Mean Corpuscular Hgb Conc 32.7 g/dL (31-36); Mean Corpuscular Volume 93.5 fL (80-97); Mean Platelet Volume 6.8 fL (7.5-11.2); Platelet Count 371 10^3/uL (150-450); Red Blood Count 4.22 10^6/uL (4.06-5.63); Red Cell Distribution Width 16.9 % (12-17); White Blood Count 23.2 10^3/uL (3.6-10.2)
[2024-01-21 06:04] LABS: ABS Lymphocytes 0.7 10^3/uL (1.0-4.8); ABS Monocytes 0.8 10^3/uL (0.0-1.1); ABS Neutrophils 21.6 10^3/uL (1.5-7.6); Lymphocyte % 2.9 %
[2024-01-21 06:19] LABS: Albumin 3.1 g/dL (3.2-5.2); Albumin/Globulin Ratio 1.2 (1-3); Calcium 8.6 mg/dL (8.6-10.3); Creatinine, Serum 0.88 mg/dL (0.67-1.17); Globulin 2.5 g/dL (2-4); Magnesium 2.4 mg/dL (1.9-2.7); Potassium 4.3 mmol/L (3.5-5.0); Total Bilirubin 0.6 mg/dL (0.2-1.0); Total Protein 5.6 g/dL (6.4-8.9); eGFR CKD-EPI 91.9 (>60)
[2024-01-21] MEDS: .Amiodarone 24HR ONLY IV Protocol Order Note IV ONE (16:31)
[2024-01-22 04:32] LABS: ABS Lymphocytes 0.6 10^3/uL (1.0-4.8); ABS Monocytes 0.7 10^3/uL (0.0-1.1); ABS Neutrophils 12.7 10^3/uL (1.5-7.6); ABS Nucleated RBC 0.01 10^3/ul; Eosinophil % 0.1 %; Hematocrit 37.7 % (38-53); Hemoglobin 12.9 g/dL (13.2-16.3); Lymphocyte % 4.1 %; Mean Corpuscular Hemoglobin 31.6 pg (27-33); Mean Corpuscular Hgb Conc 34.2 g/dL (31-36); Mean Corpuscular Volume 92.4 fL (80-97); Mean Platelet Volume 6.5 fL (7.5-11.2); Nucleated Red Blood Cells % 0.1 %/100WBC (0.0-0.8); Platelet Count 322 10^3/uL (150-450); Red Blood Count 4.08 10^6/uL (4.06-5.63); Red Cell Distribution Width 17.3 % (12-17)
[2024-01-22 05:09] LABS: Calcium 8.5 mg/dL (8.6-10.3); Creatinine, Serum 0.5 mg/dL (0.67-1.17); Magnesium 2.1 mg/dL (1.9-2.7); Potassium 3.6 mmol/L (3.5-5.0)
[2024-01-22] MEDS: KCL 20 MEQ/100 ML IVPREMIX 20 MEQ/100 ML BAG IV ONE (08:16)
[2024-01-23 04:32] LABS: Hematocrit 38.3 % (38-53); Hemoglobin 12.9 g/dL (13.2-16.3); Mean Corpuscular Hemoglobin 31.2 pg (27-33); Mean Corpuscular Hgb Conc 33.6 g/dL (31-36); Mean Corpuscular Volume 92.9 fL (80-97); Mean Platelet Volume 6.6 fL (7.5-11.2); Platelet Count 270 10^3/uL (150-450); Red Blood Count 4.13 10^6/uL (4.06-5.63); Red Cell Distribution Width 17.1 % (12-17); White Blood Count 9.7 10^3/uL (3.6-10.2)
[2024-01-23 05:09] LABS: Albumin/Globulin Ratio 1.3 (1-3); Calcium 8.6 mg/dL (8.6-10.3); Creatinine, Serum 0.42 mg/dL (0.67-1.17); Globulin 2.3 g/dL (2-4); Magnesium 2.1 mg/dL (1.9-2.7); Potassium 3.6 mmol/L (3.5-5.0); Total Bilirubin 0.5 mg/dL (0.2-1.0); Total Protein 5.3 g/dL (6.4-8.9); eGFR CKD-EPI 114.9 (>60)
[2024-01-23 05:46] LABS: ABS Lymphocytes 0.4 10^3/uL (1.0-4.8); ABS Monocytes 0.6 10^3/uL (0.0-1.1); ABS Neutrophils 8.7 10^3/uL (1.5-7.6); Eosinophil % 0.3 %; Lymphocyte % 4.4 %; RBC Morphology Normal (Normal)
[2024-01-23] MEDS: Amiodarone 400 mg TAB PO SCH (09:12)
[2024-01-23] MEDS: Digoxin IV 0.5 MG/2 ML AMP (0.25 MG/ML) IV SLOW PU ONE ×3 (09:28→18:23)
[2024-01-23 10:06] LABS: Phosphorus 2.3 mg/dL (2.5-5.0)
[2024-01-23] MEDS: Sulfamethox/Trimethoprim DS TAB 800/160 mg PO SCH (11:42)
[2024-01-23] MEDS: Potassium Chlor 20 meq TAB.ER PO ONE (11:42)
[2024-01-23] MEDS: KCL 20 MEQ/100 ML IVPREMIX 20 MEQ/100 ML BAG IV SCH (12:52)
[2024-01-23] MEDS: Potassium Phosphate IV 5 MMOL in NS 0.9% 250 ml 250 ML IVPB ONE (18:24)
[2024-01-24 04:56] LABS: Hematocrit 37.3 % (38-53); Hemoglobin 12.6 g/dL (13.2-16.3); Mean Corpuscular Hemoglobin 31.5 pg (27-33); Mean Corpuscular Hgb Conc 33.8 g/dL (31-36); Mean Corpuscular Volume 93.4 fL (80-97); Mean Platelet Volume 6.6 fL (7.5-11.2); Platelet Count 256 10^3/uL (150-450); Red Blood Count 3.99 10^6/uL (4.06-5.63); White Blood Count 8.9 10^3/uL (3.6-10.2)
[2024-01-24 05:10] LABS: Albumin 2.7 g/dL (3.2-5.2); Albumin/Globulin Ratio 1.2 (1-3); Creatinine, Serum 0.47 mg/dL (0.67-1.17); Globulin 2.2 g/dL (2-4); Total Bilirubin 0.5 mg/dL (0.2-1.0); Total Protein 4.9 g/dL (6.4-8.9); eGFR CKD-EPI 111.1 (>60)
[2024-01-24 05:17] LABS: ABS Lymphocytes 0.5 10^3/uL (1.0-4.8); ABS Monocytes 0.6 10^3/uL (0.0-1.1); ABS Neutrophils 7.9 10^3/uL (1.5-7.6); Eosinophil % 0.2 %; Lymphocyte % 5.1 %
[2024-01-24 07:20] LABS: Phosphorus 1.8 mg/dL (2.5-5.0)
[2024-01-24] MEDS: Digoxin IV 0.5 MG/2 ML AMP (0.25 MG/ML) IV SLOW PU ONE (07:40)
[2024-01-24] MEDS: Potassium Phosphate IV 10 MMOL in NS 0.9% 250 ml 250 ML IVPB ONE (09:43)
[2024-01-24] MEDS: Metoprolol Tartrate 5 mg VIAL 5 ml VIAL (1 mg/ml) IV ONE ×2 (10:43→15:48)
[2024-01-24] MEDS: Potassium & Sodium Phos 250 mg = 1 PACKET PO SCH (12:55)
[2024-01-24] MEDS: LOVASTATIN 10 MG SCH ×3 (18:25→23:49)
[2024-01-24] MEDS: Gadoteridol (CONTRAST) 279.3 MG/ML 10 ML IV ONE (22:30)
[2024-01-24] MEDS: Amiodarone 400 mg TAB FEED TUBE SCH (23:10)
[2024-01-24] MEDS: Potassium & Sodium Phos 250 mg = 1 PACKET FEED TUBE SCH (23:11)
[2024-01-25] MEDS ORDERED: methylPREDNISolone SOD SUCC 1,000 MG in NS 0.9% 1000 ml BAG 1,000 ML IVPB ONE (00:09)
[2024-01-25] MEDS: cefTRIAXone 2 gm/50 mL D5W 2 GM/50 ML BAG IV SCH (01:17)
[2024-01-25] MEDS: methylPREDNISolone SOD SUCC 1,000 MG in NS 0.9% 250 ml 250 ML IVPB ONE (01:45)
[2024-01-25 05:04] LABS: Hematocrit 37.9 % (38-53); Hemoglobin 12.7 g/dL (13.2-16.3); Mean Corpuscular Hemoglobin 31.2 pg (27-33); Mean Corpuscular Hgb Conc 33.6 g/dL (31-36); Mean Corpuscular Volume 92.8 fL (80-97); Mean Platelet Volume 6.7 fL (7.5-11.2); Platelet Count 284 10^3/uL (150-450); Red Blood Count 4.09 10^6/uL (4.06-5.63); Red Cell Distribution Width 17.2 % (12-17); White Blood Count 9.3 10^3/uL (3.6-10.2)
[2024-01-25 05:58] LABS: ABS Lymphocytes 0.3 10^3/uL (1.0-4.8); ABS Monocytes 0.2 10^3/uL (0.0-1.1); ABS Neutrophils 8.7 10^3/uL (1.5-7.6); Eosinophil % 0.1 %; Lymphocyte % 3.4 %
[2024-01-25 06:22] LABS: Albumin 2.8 g/dL (3.2-5.2); Albumin/Globulin Ratio 1.1 (1-3); Calcium 8.1 mg/dL (8.6-10.3); Creatinine, Serum 0.45 mg/dL (0.67-1.17); Globulin 2.6 g/dL (2-4); Magnesium 2.1 mg/dL (1.9-2.7); Phosphorus 3.4 mg/dL (2.5-5.0); Potassium 4.2 mmol/L (3.5-5.0); Total Bilirubin 0.4 mg/dL (0.2-1.0); Total Protein 5.4 g/dL (6.4-8.9); eGFR CKD-EPI 112.6 (>60)
[2024-01-25] MEDS: Cholecalciferol (VIT D3) 1,000 unit TAB FEED TUBE SCH (09:34)
[2024-01-25] MEDS: Sulfamethox/Trimethoprim SUSP 800-160mg/20 ML UDC FEED TUBE SCH (09:35)
[2024-01-25] MEDS: Pantoprazole VIAL 40 MG VIAL IV SCH (09:49)
[2024-01-25 11:22] LABS: INR 2.55 (0.83-1.13)
[2024-01-25 11:24] LABS: Calcium (PTH Intact) 8.3 mg/dL (8.6-10.3)
[2024-01-25] MEDS: Nystatin SUSPENSION 100,000 UNITS/ML UDC PO SCH (23:58)
[2024-01-26 04:54] LABS: ABS Lymphocytes 0.5 10^3/uL (1.0-4.8); ABS Monocytes 0.6 10^3/uL (0.0-1.1); ABS Neutrophils 9.1 10^3/uL (1.5-7.6); ABS Nucleated RBC 0.01 10^3/ul; Hematocrit 38.6 % (38-53); Hemoglobin 13.3 g/dL (13.2-16.3); Lymphocyte % 4.7 %; Mean Corpuscular Hemoglobin 32.2 pg (27-33); Mean Corpuscular Hgb Conc 34.6 g/dL (31-36); Mean Corpuscular Volume 92.9 fL (80-97); Mean Platelet Volume 6.7 fL (7.5-11.2); Nucleated Red Blood Cells % 0.1 %/100WBC (0.0-0.8); Platelet Count 282 10^3/uL (150-450); Red Blood Count 4.15 10^6/uL (4.06-5.63); Red Cell Distribution Width 16.8 % (12-17); White Blood Count 10.2 10^3/uL (3.6-10.2)
[2024-01-26 05:26] LABS: Calcium 8.3 mg/dL (8.6-10.3); Creatinine, Serum 0.34 mg/dL (0.67-1.17); Magnesium 2.1 mg/dL (1.9-2.7); Potassium 3.7 mmol/L (3.5-5.0); eGFR CKD-EPI 122.5 (>60)
[2024-01-26] MEDS: Levothyroxine 100 MCG/5 ML VIAL IV SCH (05:48)
[2024-01-26] MEDS: methylPREDNISolone SOD SUCC 1,000 MG in NS 0.9% 250 ml 250 ML IVPB SCH (05:50)
[2024-01-26] MEDS: methylPREDNISolone SOD SUCC 1000 MG ML VIAL ONE (06:08)
[2024-01-26] MEDS: Digoxin IV 0.5 MG/2 ML AMP (0.25 MG/ML) IV SLOW PU ONE (09:10)
[2024-01-26] MEDS: Potassium Chloride LIQUID 20 MEQ/15 ML LIQUID PO ONE (09:10)
[2024-01-26] MEDS: Fluconazole SUSP ORALSYR 40 MG/ML NG TUBE ONE (10:52)
[2024-01-26 11:33] LABS: Digoxin 0.5 ng/ml (0.8-2.0)
[2024-01-26] MEDS: Nystatin SUSPENSION 100,000 UNITS/ML UDC PO SCH (14:01)
[2024-01-27 05:01] LABS: ABS Lymphocytes 0.3 10^3/uL (1.0-4.8); ABS Monocytes 0.4 10^3/uL (0.0-1.1); ABS Neutrophils 8.2 10^3/uL (1.5-7.6); Hematocrit 38.2 % (38-53); Hemoglobin 12.7 g/dL (13.2-16.3); Lymphocyte % 3.8 %; Mean Corpuscular Hemoglobin 30.7 pg (27-33); Mean Corpuscular Hgb Conc 33.3 g/dL (31-36); Mean Corpuscular Volume 92.4 fL (80-97); Platelet Count 291 10^3/uL (150-450); Red Blood Count 4.14 10^6/uL (4.06-5.63); Red Cell Distribution Width 16.9 % (12-17); White Blood Count 8.9 10^3/uL (3.6-10.2)
[2024-01-27] MEDS: Potassium Chloride LIQUID 20 MEQ/15 ML LIQUID NG TUBE ONE (05:41)
[2024-01-27 05:54] LABS: Calcium 8.2 mg/dL (8.6-10.3); Creatinine, Serum 0.33 mg/dL (0.67-1.17); Magnesium 2.1 mg/dL (1.9-2.7); Potassium 3.9 mmol/L (3.5-5.0); eGFR CKD-EPI 123.6 (>60)
[2024-01-27 06:25] LABS: Hepatitis B Surface Antigen Nonreactive (Nonreactive)
[2024-01-27 06:42] LABS: Hepatitis B Surface Ab Not Immune (Immune)
[2024-01-27 06:43] LABS: Hepatitis C Antibody Negative (Negative)
[2024-01-27] MEDS ORDERED: Immune Globulin IV Order (CPOE ENTRY PROTOCOL) IV SCH (09:00)
[2024-01-27 10:27] LABS: Digoxin 0.7 ng/ml (0.8-2.0)
[2024-01-27] MEDS: Digoxin IV 0.5 MG/2 ML AMP (0.25 MG/ML) IV SLOW PU ONE (10:33)
[2024-01-27] MEDS: methylPREDNISolone SOD SUCC 1000 MG ML VIAL ONE (10:51)
[2024-01-27] MEDS: Immune Glob 10%-20GM GAMMAGLIQ 40 GM in Premix IV 0 ML IV SCH (11:57)
[2024-01-27] MEDS: Iohexol 350 (CONTRAST) 500 ML MDV IV ONE (12:30)
[2024-01-27] MEDS: Digoxin LIQ ORALSYR 0.05 MG/ML 1 ML NG TUBE SCH (17:45)
[2024-01-28 06:16] LABS: Hemoglobin 12.1 g/dL (13.2-16.3); Mean Corpuscular Hemoglobin 30.9 pg (27-33); Mean Corpuscular Hgb Conc 33.5 g/dL (31-36); Mean Corpuscular Volume 92.1 fL (80-97); Mean Platelet Volume 7.2 fL (7.5-11.2); Platelet Count 263 10^3/uL (150-450); Red Blood Count 3.91 10^6/uL (4.06-5.63); White Blood Count 7.9 10^3/uL (3.6-10.2)
[2024-01-28 06:45] LABS: Creatinine, Serum 0.37 mg/dL (0.67-1.17); Magnesium 2.2 mg/dL (1.9-2.7); Potassium 3.8 mmol/L (3.5-5.0); eGFR CKD-EPI 119.4 (>60)
[2024-01-28 07:32] LABS: ABS Lymphocytes 0.3 10^3/uL (1.0-4.8); ABS Monocytes 0.3 10^3/uL (0.0-1.1); ABS Neutrophils 7.3 10^3/uL (1.5-7.6); Lymphocyte % 3.7 %
[2024-01-28 08:42] LABS: Digoxin 0.8 ng/ml (0.8-2.0)
[2024-01-28] MEDS: Potassium Chloride LIQUID 20 MEQ/15 ML LIQUID NG TUBE ONE (08:52)
[2024-01-28] MEDS: methylPREDNISolone SOD SUCC 500 MG in NS 0.9% 100 ml BAG 100 ML IVPB ONE (11:52)
[2024-01-28 16:09] LABS: Phosphorus 2.8 mg/dL (2.5-5.0)
[2024-01-29 04:25] LABS: Hematocrit 35.5 % (38-53); Hemoglobin 11.9 g/dL (13.2-16.3); Mean Corpuscular Hemoglobin 30.7 pg (27-33); Mean Corpuscular Hgb Conc 33.4 g/dL (31-36); Mean Corpuscular Volume 91.8 fL (80-97); Mean Platelet Volume 7.1 fL (7.5-11.2); Platelet Count 218 10^3/uL (150-450); Red Blood Count 3.86 10^6/uL (4.06-5.63); White Blood Count 10.9 10^3/uL (3.6-10.2)
[2024-01-29 05:09] LABS: Calcium 7.8 mg/dL (8.6-10.3); Creatinine, Serum 0.33 mg/dL (0.67-1.17); Magnesium 2.3 mg/dL (1.9-2.7); Potassium 4.4 mmol/L (3.5-5.0); eGFR CKD-EPI 123.6 (>60)
[2024-01-29 05:54] LABS: ABS Lymphocytes 0.3 10^3/uL (1.0-4.8); ABS Monocytes 0.4 10^3/uL (0.0-1.1); ABS Neutrophils 10.2 10^3/uL (1.5-7.6); Lymphocyte % 2.8 %
[2024-01-29 05:55] LABS: Anisocytosis 1+
[2024-01-29] MEDS: NS 0.9% IVPB SCH (10:13)
[2024-01-29] MEDS: METHYLPREDNISOLONE SOD SUCC IVPB SCH (10:13)
[2024-01-29] MEDS ORDERED: NS 0.9% IV ONE (15:00)
[2024-01-29] MEDS ORDERED: METHYLPREDNISOLONE SOD IV ONE (15:00)
[2024-01-29] MEDS: METHYLPREDNISOLONE SOD SUCC IVPB ONE (16:42)
[2024-01-29] MEDS: NS 0.9% IVPB ONE (16:42)
[2024-01-30 04:52] LABS: ABS Lymphocytes 0.3 10^3/uL (1.0-4.8); ABS Monocytes 0.3 10^3/uL (0.0-1.1); ABS Neutrophils 12.6 10^3/uL (1.5-7.6); ABS Nucleated RBC 0.01 10^3/ul; Hematocrit 35.7 % (38-53); Lymphocyte % 2.1 %; Mean Corpuscular Hemoglobin 30.7 pg (27-33); Mean Corpuscular Hgb Conc 33.6 g/dL (31-36); Mean Corpuscular Volume 91.4 fL (80-97); Mean Platelet Volume 7.8 fL (7.5-11.2); Platelet Count 213 10^3/uL (150-450); Red Blood Count 3.91 10^6/uL (4.06-5.63); White Blood Count 13.2 10^3/uL (3.6-10.2)
[2024-01-30 05:45] LABS: Albumin 2.6 g/dL (3.2-5.2); Albumin/Globulin Ratio 0.6 (1-3); Calcium 7.6 mg/dL (8.6-10.3); Creatinine, Serum 0.34 mg/dL (0.67-1.17); Globulin 4.5 g/dL (2-4); Magnesium 2.2 mg/dL (1.9-2.7); Phosphorus 2.8 mg/dL (2.5-5.0); Potassium 4.3 mmol/L (3.5-5.0); Total Bilirubin 0.4 mg/dL (0.2-1.0); Total Protein 7.1 g/dL (6.4-8.9); eGFR CKD-EPI 122.5 (>60)
[2024-01-30] MEDS: methylPREDNISolone SOD SUCC 1,000 MG in NS 0.9% 100 ml BAG 100 ML IVPB SCH (12:45)
[2024-01-30] MEDS ORDERED: Rocuronium 50 mg VIAL 10 mg/ml 5 ml VIAL (50 mg) ONE (13:06)
[2024-01-30] MEDS ORDERED: Midazolam 10 mg/10 ml VIAL 1 mg/ml 10 ml VIAL (10 mg) ONE (13:06)
[2024-01-30] MEDS ORDERED: KETAMINE HCL 10 MG/ML 20 ml VIAL (200 MG) ONE (13:06)
[2024-01-30] MEDS: Propofol 10 mg/ml 100 ML BTL 1,000 MG/100 ML BTL IV SCH (13:10)
[2024-01-30] MEDS: Rocuronium 50 mg VIAL 10 mg/ml 5 ml VIAL (50 mg) ONE (13:11)
[2024-01-30 13:19] LABS: TB1 Ag minus Nil Result 0.01 IU/mL; TB2 Ag minus Nil Result -0.01 IU/mL
[2024-01-30 13:26] LABS: QuantiferonTb Gold Plus Result Indeterminate (Negative)
[2024-01-30] MEDS: Chlorhexidine MOUTHWASH 0.12% 15 ML UDC TOPICAL SCH (14:05)
[2024-01-30] MEDS: Phenylephrine 40 mcg/mL 10mL (400mcg) SYRINGE ONE (14:06)
[2024-01-30] MEDS: Propofol 10 MG/ML 20 ML BTL ONE (14:06)
[2024-01-30 14:30] LABS: Body Fluid Source Broncheoalveolar lav
[2024-01-30 15:17] LABS: Body Fluid Appearance Cloudy; Body Fluid Color Pink
[2024-01-30 16:15] LABS: Body Fluid Total Cells Counted 300
[2024-01-30 16:18] LABS: Body Fluid Total Cells Counted 300
[2024-01-30 18:46] LABS: Urine Appearance No Cx Clear (Clear); Urine Bacteria No Culture Absent /HPF (Absent); Urine Bilirubin No Culture Negative (Negative); Urine Blood No Culture Negative (Negative); Urine Color No Culture Light-Yellow; Urine Glucose No Culture 4+ (>=1000 mg/dL) (Negative); Urine Ketones No Culture Negative (Negative); Urine Leukocytes No Culture Negative Leu/uL (Negative); Urine Nitrite No Culture Negative (Negative); Urine Protein No Culture Trace (Negative); Urine Red Blood Cell No Cult Trace(0-2/hpf) /HPF (0-Trace); Urine Urobilinogen No Cx Negative (Negative); Urine White Blood Cell No Cult Absent /HPF (0-Trace); Urine pH No Culture 6.5 (5.0-8.0)
[2024-01-30] MEDS: Pantoprazole VIAL 40 MG VIAL IV SCH (20:55)
[2024-01-31 04:35] LABS: ABS Lymphocytes 0.2 10^3/uL (1.0-4.8); ABS Monocytes 0.3 10^3/uL (0.0-1.1); ABS Neutrophils 10.6 10^3/uL (1.5-7.6); Hematocrit 32.5 % (38-53); Hemoglobin 10.8 g/dL (13.2-16.3); Mean Corpuscular Hemoglobin 30.4 pg (27-33); Mean Corpuscular Hgb Conc 33.3 g/dL (31-36); Mean Corpuscular Volume 91.1 fL (80-97); Mean Platelet Volume 7.7 fL (7.5-11.2); Platelet Count 149 10^3/uL (150-450); Red Blood Count 3.56 10^6/uL (4.06-5.63); Red Cell Distribution Width 16.7 % (12-17); White Blood Count 11.2 10^3/uL (3.6-10.2)
[2024-01-31 05:18] LABS: Albumin 2.3 g/dL (3.2-5.2); Albumin/Globulin Ratio 0.5 (1-3); Calcium 7.4 mg/dL (8.6-10.3); Creatinine, Serum 0.32 mg/dL (0.67-1.17); Globulin 4.5 g/dL (2-4); Magnesium 2.2 mg/dL (1.9-2.7); Phosphorus 2.2 mg/dL (2.5-5.0); Total Bilirubin 0.3 mg/dL (0.2-1.0); Total Protein 6.8 g/dL (6.4-8.9); eGFR CKD-EPI 124.8 (>60)
[2024-01-31] MEDS: fentaNYL 100 mcg/2 ml 50 MCG/ML VIAL IV SLOW PU PRN ×2 (06:58→11:14)
[2024-01-31] MEDS: Sodium Phosphate IV 15 MMOL in NS 0.9% 250 ml 250 ML IV ONE (09:23)
[2024-02-01] MEDS: Lactulose 30 ml UDC NG TUBE ONE (02:18)
[2024-02-01 04:59] LABS: ABS Basophils 0.1 10^3/uL (0.0-0.1); ABS Lymphocytes 0.2 10^3/uL (1.0-4.8); ABS Monocytes 0.4 10^3/uL (0.0-1.1); ABS Neutrophils 9.7 10^3/uL (1.5-7.6); ABS Nucleated RBC 0.01 10^3/ul; Hematocrit 30.9 % (38-53); Hemoglobin 10.5 g/dL (13.2-16.3); Lymphocyte % 1.5 %; Mean Corpuscular Hemoglobin 31.2 pg (27-33); Mean Corpuscular Volume 91.6 fL (80-97); Nucleated Red Blood Cells % 0.1 %/100WBC (0.0-0.8); Platelet Count 132 10^3/uL (150-450); Red Blood Count 3.37 10^6/uL (4.06-5.63); Red Cell Distribution Width 16.9 % (12-17); White Blood Count 10.3 10^3/uL (3.6-10.2)
[2024-02-01 05:27] LABS: Albumin 2.2 g/dL (3.2-5.2); Albumin/Globulin Ratio 0.5 (1-3); Calcium 7.2 mg/dL (8.6-10.3); Creatinine, Serum 0.38 mg/dL (0.67-1.17); Globulin 4.7 g/dL (2-4); Magnesium 2.2 mg/dL (1.9-2.7); Phosphorus 2.4 mg/dL (2.5-5.0); Potassium 4.1 mmol/L (3.5-5.0); Total Bilirubin 0.3 mg/dL (0.2-1.0); Total Protein 6.9 g/dL (6.4-8.9); eGFR CKD-EPI 118.5 (>60)
[2024-02-01] MEDS ORDERED: Dextrose 50% Syringe 50 ml 25 GM/50 ML SYRINGE IV PUSH PRN (08:32)
[2024-02-01] MEDS: methylPREDNISolone SOD SUCC 1000 MG ML VIAL ONE (11:28)
[2024-02-01 12:01] LABS: Hematocrit 32.6 % (38-53); Hemoglobin 10.7 g/dL (13.2-16.3); Mean Corpuscular Hemoglobin 30.1 pg (27-33); Mean Corpuscular Hgb Conc 32.8 g/dL (31-36); Mean Corpuscular Volume 91.9 fL (80-97); Mean Platelet Volume 8.1 fL (7.5-11.2); Platelet Count 140 10^3/uL (150-450); Red Blood Count 3.54 10^6/uL (4.06-5.63); Red Cell Distribution Width 16.9 % (12-17); White Blood Count 11.3 10^3/uL (3.6-10.2)
[2024-02-01] MEDS: Enoxaparin 100 MG/ML SYR SUBCUT SCH (21:04)
[2024-02-02 06:04] LABS: ABS Lymphocytes 0.2 10^3/uL (1.0-4.8); ABS Monocytes 0.3 10^3/uL (0.0-1.1); ABS Neutrophils 9.4 10^3/uL (1.5-7.6); ABS Nucleated RBC 0.01 10^3/ul; Hematocrit 31.7 % (38-53); Hemoglobin 10.8 g/dL (13.2-16.3); Lymphocyte % 1.6 %; Mean Corpuscular Hemoglobin 31.2 pg (27-33); Mean Corpuscular Hgb Conc 34.1 g/dL (31-36); Mean Corpuscular Volume 91.3 fL (80-97); Mean Platelet Volume 8.1 fL (7.5-11.2); Nucleated Red Blood Cells % 0.1 %/100WBC (0.0-0.8); Platelet Count 111 10^3/uL (150-450); Red Blood Count 3.47 10^6/uL (4.06-5.63); Red Cell Distribution Width 16.6 % (12-17)
[2024-02-02 06:36] LABS: Albumin 2.2 g/dL (3.2-5.2); Albumin/Globulin Ratio 0.5 (1-3); Creatinine, Serum 0.36 mg/dL (0.67-1.17); Globulin 4.3 g/dL (2-4); Magnesium 2.1 mg/dL (1.9-2.7); Phosphorus 2.4 mg/dL (2.5-5.0); Potassium 4.2 mmol/L (3.5-5.0); Total Bilirubin 0.3 mg/dL (0.2-1.0); Total Protein 6.5 g/dL (6.4-8.9); eGFR CKD-EPI 120.4 (>60)
[2024-02-02] MEDS ORDERED: methylPREDNISolone SOD SUCC 1000 MG ML VIAL IVPB SCH (09:00)
[2024-02-02] MEDS: Senna TAB 8.6 mg TAB NG TUBE PRN (09:23)
[2024-02-02] MEDS: Polyethylene Glycol 3350 17 GM PACKET NG TUBE PRN (09:24)
[2024-02-02] MEDS: methylPREDNISolone SOD SUCC 500 MG in NS 100 ML BAG IVPB SCH (09:24)
[2024-02-02] MEDS: CALCIUM GLUCONATE 1GM/50ML NS 1 GM/50 ML BAG IV ONE (10:15)
[2024-02-02] MEDS: EPINEPHrine 1 MG/ML MDV 5 MG in D5W 250 ml BAG 245 ML IV SCH (18:30)
[2024-02-03 04:37] LABS: ABS Lymphocytes 0.2 10^3/uL (1.0-4.8); ABS Monocytes 0.6 10^3/uL (0.0-1.1); ABS Neutrophils 13.9 10^3/uL (1.5-7.6); ABS Nucleated RBC 0.02 10^3/ul; Hematocrit 34.2 % (38-53); Hemoglobin 11.5 g/dL (13.2-16.3); Lymphocyte % 1.3 %; Mean Corpuscular Hemoglobin 30.7 pg (27-33); Mean Corpuscular Hgb Conc 33.5 g/dL (31-36); Mean Corpuscular Volume 91.7 fL (80-97); Mean Platelet Volume 8.4 fL (7.5-11.2); Nucleated Red Blood Cells % 0.1 %/100WBC (0.0-0.8); Platelet Count 110 10^3/uL (150-450); Red Blood Count 3.73 10^6/uL (4.06-5.63); White Blood Count 14.8 10^3/uL (3.6-10.2)
[2024-02-03 04:53] LABS: INR 1.09 (0.83-1.13)
[2024-02-03 05:28] LABS: Albumin 2.2 g/dL (3.2-5.2); Albumin/Globulin Ratio 0.5 (1-3); Calcium 7.1 mg/dL (8.6-10.3); Creatinine, Serum 0.31 mg/dL (0.67-1.17); Globulin 4.1 g/dL (2-4); Magnesium 2.1 mg/dL (1.9-2.7); Phosphorus 2.6 mg/dL (2.5-5.0); Potassium 4.3 mmol/L (3.5-5.0); Total Bilirubin 0.3 mg/dL (0.2-1.0); Total Protein 6.3 g/dL (6.4-8.9)
[2024-02-03] MEDS: Pantoprazole VIAL 40 MG VIAL IV SCH (08:51)
[2024-02-03] MEDS: Lactulose 30 ml UDC NG TUBE ONE (10:04)
[2024-02-03] MEDS: CALCIUM GLUCONATE 1GM/50ML NS 1 GM/50 ML BAG IV ONE (10:04)
[2024-02-03] MEDS: Midazolam 2 mg/2 ml VIAL 1 mg/ml 2 ml VIAL (2 mg) IV SLOW PU ONE (12:35)
[2024-02-03] MEDS: Acetylcysteine ORAL SOL 200 mg/ml 30 ml VIAL ONE (12:48)
[2024-02-03] MEDS ORDERED: Zosyn per Pharmacy NOTE FOLLOW UP SCH (14:00)
[2024-02-03] MEDS: Piperacillin/Tazobac 3.375 BAG 3.375 GM/100 ML BAG IV ONE (14:38)
[2024-02-03] MEDS: ZOSYN 3.375 GM Q8H per EXTENDED INFUSION IV SCH (17:13)
[2024-02-04 04:55] LABS: Albumin 2.2 g/dL (3.2-5.2); Albumin/Globulin Ratio 0.7 (1-3); Calcium 6.9 mg/dL (8.6-10.3); Creatinine, Serum 0.31 mg/dL (0.67-1.17); Digoxin 0.7 ng/ml (0.8-2.0); Globulin 3.3 g/dL (2-4); Phosphorus 2.6 mg/dL (2.5-5.0); Potassium 4.2 mmol/L (3.5-5.0); Total Bilirubin 0.4 mg/dL (0.2-1.0); Total Protein 5.5 g/dL (6.4-8.9)
[2024-02-04 05:52] LABS: ABS Lymphocytes 0.1 10^3/uL (1.0-4.8); ABS Monocytes 0.4 10^3/uL (0.0-1.1); ABS Neutrophils 10.9 10^3/uL (1.5-7.6); Hematocrit 32.3 % (38-53); Hemoglobin 10.9 g/dL (13.2-16.3); Lymphocyte % 1.1 %; Mean Corpuscular Hemoglobin 31.3 pg (27-33); Mean Corpuscular Hgb Conc 33.9 g/dL (31-36); Mean Corpuscular Volume 92.3 fL (80-97); Mean Platelet Volume 8.8 fL (7.5-11.2); Platelet Count 86 10^3/uL (150-450); Red Cell Distribution Width 17.1 % (12-17); White Blood Count 11.5 10^3/uL (3.6-10.2)
[2024-02-05 04:34] LABS: Hematocrit 32.9 % (38-53); Hemoglobin 11.1 g/dL (13.2-16.3); Mean Corpuscular Hemoglobin 30.8 pg (27-33); Mean Corpuscular Hgb Conc 33.6 g/dL (31-36); Mean Corpuscular Volume 91.6 fL (80-97); Mean Platelet Volume 8.8 fL (7.5-11.2); Platelet Count 82 10^3/uL (150-450); Red Blood Count 3.59 10^6/uL (4.06-5.63); Red Cell Distribution Width 17.2 % (12-17); White Blood Count 11.1 10^3/uL (3.6-10.2)
[2024-02-05 04:51] LABS: ABS Lymphocytes 0.3 10^3/uL (1.0-4.8); ABS Monocytes 0.5 10^3/uL (0.0-1.1); ABS Neutrophils 10.4 10^3/uL (1.5-7.6); ABS Nucleated RBC 0.01 10^3/ul; Lymphocyte % 2.5 %
[2024-02-05 05:52] LABS: Anion Gap 4 mmol/L (2-16); Blood Urea Nitrogen 28 mg/dL (6-24); CO2 Carbon Dioxide 27 mmol/L (22-32); Calcium 6.7 mg/dL (8.6-10.3); Chloride 106 mmol/L (101-111); Glucose 180 mg/dL (70-100); Potassium 4.3 mmol/L (3.5-5.0); Sodium 137 mmol/L (135-145)
[2024-02-05 05:53] LABS: ALT 154 U/L (7-52); AST 44 U/L (13-39); Albumin 2.2 g/dL (3.2-5.2); Albumin/Globulin Ratio 0.7 (1-3); Alkaline Phosphatase 70 U/L (35-149); Creatinine, Serum < 0.30 mg/dL (0.67-1.17); Globulin 3.2 g/dL (2-4); Magnesium 2.1 mg/dL (1.9-2.7); Total Bilirubin 0.3 mg/dL (0.2-1.0); Total Protein 5.4 g/dL (6.4-8.9); eGFR CKD-EPI 127.2 (>60)
[2024-02-05] MEDS ORDERED: methylPREDNISolone SOD SUCC 1000 MG ML VIAL IVPB SCH (09:00)
[2024-02-05] MEDS: NS 0.9% IV SCH (12:18)
[2024-02-05] MEDS: METHYLPREDNISOLONE IV SCH (12:18)
[2024-02-05] MEDS: NS 0.9% 1000 ml BAG 1,000 ML IV ONE (12:29)
[2024-02-05] MEDS: CALCIUM GLUCONATE 1GM/50ML NS 1 GM/50 ML BAG IV ONE (12:35)
[2024-02-06 05:23] LABS: INR 0.98 (0.83-1.13)
[2024-02-06 06:00] LABS: ALT 132 U/L (7-52); AST 40 U/L (13-39); Albumin 2.3 g/dL (3.2-5.2); Albumin/Globulin Ratio 0.8 (1-3); Alkaline Phosphatase 67 U/L (35-149); Anion Gap 4 mmol/L (2-16); Blood Urea Nitrogen 27 mg/dL (6-24); CO2 Carbon Dioxide 26 mmol/L (22-32); Calcium 6.7 mg/dL (8.6-10.3); Chloride 107 mmol/L (101-111); Creatinine, Serum < 0.30 mg/dL (0.67-1.17); Globulin 2.8 g/dL (2-4); Glucose 162 mg/dL (70-100); Potassium 4.4 mmol/L (3.5-5.0); Sodium 137 mmol/L (135-145); Total Bilirubin 0.4 mg/dL (0.2-1.0); Total Protein 5.1 g/dL (6.4-8.9); eGFR CKD-EPI 127.2 (>60)
[2024-02-06 07:13] LABS: ABS Lymphocytes 0.2 10^3/uL (1.0-4.8); ABS Monocytes 0.4 10^3/uL (0.0-1.1); ABS Neutrophils 10.5 10^3/uL (1.5-7.6); Hematocrit 32.1 % (38-53); Hemoglobin 10.8 g/dL (13.2-16.3); Mean Corpuscular Hemoglobin 31.3 pg (27-33); Mean Corpuscular Hgb Conc 33.7 g/dL (31-36); Mean Corpuscular Volume 92.8 fL (80-97); Mean Platelet Volume 9.3 fL (7.5-11.2); Platelet Count 61 10^3/uL (150-450); Red Blood Count 3.46 10^6/uL (4.06-5.63); Red Cell Distribution Width 17.5 % (12-17); White Blood Count 11.1 10^3/uL (3.6-10.2)
[2024-02-06 09:43] LABS: C Reactive Protein 5.13 mg/L (<8.01); Rheumatoid Factor < 10 IU/mL (<15)
[2024-02-06] MEDS: methylPREDNISolone SOD SUCC 125 mg 2 ML VIAL ONE (10:01)
[2024-02-06] MEDS: Lactulose 30 ml UDC NG TUBE ONE (10:52)
[2024-02-06 11:14] LABS: Erythrocyte Sed Rate 34 mm/Hr (0-19)
[2024-02-06] MEDS: Ondansetron 4 mg VIAL 2 MG/ML 2 ml VIAL IV PRN (14:39)
[2024-02-06] MEDS: Ondansetron 4 mg VIAL 2 MG/ML 2 ml VIAL ONE (14:54)
[2024-02-06 16:44] LABS: Body Fluid Source Cerebral Spinal
[2024-02-06 17:15] LABS: CSF Body Fluid WBC 2 /mcL
[2024-02-06 17:39] LABS: Body Fluid Appearance Clear; Body Fluid Color Colorless; Body Fluid Total Cells Counted 4; CSF Tube # 4
[2024-02-06] MEDS ORDERED: Polyethylene Glycol 3350 17 GM PACKET PO PRN (19:25)
[2024-02-06] MEDS: Potassium & Sodium Phos 250 mg = 1 PACKET PO SCH (20:08)
[2024-02-07 04:31] LABS: ABS Lymphocytes 0.5 10^3/uL (1.0-4.8); ABS Monocytes 0.6 10^3/uL (0.0-1.1); ABS Neutrophils 12.2 10^3/uL (1.5-7.6); Hematocrit 33.2 % (38-53); Hemoglobin 11.2 g/dL (13.2-16.3); Mean Corpuscular Hemoglobin 31.1 pg (27-33); Mean Corpuscular Hgb Conc 33.7 g/dL (31-36); Mean Corpuscular Volume 92.3 fL (80-97); Mean Platelet Volume 8.7 fL (7.5-11.2); Platelet Count 61 10^3/uL (150-450); Red Blood Count 3.59 10^6/uL (4.06-5.63); Red Cell Distribution Width 17.5 % (12-17); White Blood Count 13.3 10^3/uL (3.6-10.2)
[2024-02-07 04:52] LABS: ALT 120 U/L (7-52); AST 39 U/L (13-39); Albumin 2.3 g/dL (3.2-5.2); Albumin/Globulin Ratio 0.8 (1-3); Alkaline Phosphatase 56 U/L (35-149); Anion Gap 6 mmol/L (2-16); Blood Urea Nitrogen 27 mg/dL (6-24); CO2 Carbon Dioxide 26 mmol/L (22-32); Calcium 6.8 mg/dL (8.6-10.3); Chloride 106 mmol/L (101-111); Creatinine, Serum < 0.30 mg/dL (0.67-1.17); Globulin 2.9 g/dL (2-4); Glucose 105 mg/dL (70-100); Potassium 4.3 mmol/L (3.5-5.0); Sodium 138 mmol/L (135-145); Total Bilirubin 0.5 mg/dL (0.2-1.0); Total Protein 5.2 g/dL (6.4-8.9); eGFR CKD-EPI 127.2 (>60)
[2024-02-07] MEDS: METHYLPREDNISOLONE IV SCH (08:13)
[2024-02-07] MEDS: NS 0.9% IV SCH (08:13)
[2024-02-07] MEDS: CALCIUM GLUCONATE 1GM/50ML NS 1 GM/50 ML BAG IV SCH (08:17)
[2024-02-07] MEDS ORDERED: Senna TAB 8.6 mg TAB PO SCH (09:00)
[2024-02-07] MEDS ORDERED: Senna TAB 8.6 mg TAB NG TUBE SCH (09:00)
[2024-02-07] MEDS ORDERED: Digoxin LIQ ORALSYR 0.05 MG/ML 1 ML PO SCH (17:00)
[2024-02-07] MEDS: Digoxin IV 0.5 MG/2 ML AMP (0.25 MG/ML) IV SLOW PU ONE (22:17)
[2024-02-07 22:46] LABS: Hematocrit 35.3 % (38-53); Hemoglobin 11.7 g/dL (13.2-16.3); Mean Corpuscular Hemoglobin 30.8 pg (27-33); Mean Corpuscular Hgb Conc 33.2 g/dL (31-36); Mean Corpuscular Volume 92.9 fL (80-97); Mean Platelet Volume 8.9 fL (7.5-11.2); Platelet Count 84 10^3/uL (150-450); Red Cell Distribution Width 17.7 % (12-17); White Blood Count 4.3 10^3/uL (3.6-10.2)
[2024-02-07 22:51] LABS: INR 1.07 (0.83-1.13)
[2024-02-07] MEDS: PHENYLEPHRINE DRIP IVPREMIX 50 MG/250 ML BAG IV SCH (23:39)
[2024-02-08 00:15] LABS: CRP High Sensitivity 32.41 mg/L (<2.00); Calcium 7.4 mg/dL (8.6-10.3); Creatinine, Serum 0.52 mg/dL (0.67-1.17); Potassium 4.2 mmol/L (3.5-5.0); eGFR CKD-EPI 107.8 (>60)
[2024-02-08 00:26] LABS: ABS Lymphocytes 0.2 10^3/uL (1.0-4.8); ABS Monocytes 0.1 10^3/uL (0.0-1.1); ABS Nucleated RBC 0.01 10^3/ul; Nucleated Red Blood Cells % 0.2 %/100WBC (0.0-0.8); RBC Morphology Normal (Normal); Toxic Granulation 1+
[2024-02-08] MEDS: Propofol 10 mg/ml 100 ML BTL 1,000 MG/100 ML BTL IV SCH (00:45)
[2024-02-08 00:59] LABS: PCO2 Arterial 37 mmHg (35-45); PO2 Arterial 73 mmHg (80-100)
[2024-02-08] MEDS ORDERED: Zosyn per Pharmacy NOTE FOLLOW UP SCH (01:00)
[2024-02-08] MEDS ORDERED: Vancomycin per Pharmacy 1 EA NOTE FOLLOW UP SCH (01:00)
[2024-02-08] MEDS: Succinylcholine 200 mg VIAL 20 mg/ml 10 ml VIAL (200 mg) ONE (01:05)
[2024-02-08] MEDS: Propofol 10 mg/ml 100 ML BTL 1,000 MG/100 ML BTL ONE (01:06)
[2024-02-08] MEDS: Norepinephrine 4 MG/250mL D5W 4,000 MCG/250 ML BAG IV ONE (02:13)
[2024-02-08] MEDS: Rocuronium 50 mg VIAL 10 mg/ml 5 ml VIAL (50 mg) ONE (02:14)
[2024-02-08] MEDS: ZOSYN 3.375 GM x ONE DOSE over 30 miuntes IV (02:14)
[2024-02-08] MEDS: Acetaminophen IV 1 GM/100ML 1,000 MG/100 ML BAG IV PRN (02:20)
[2024-02-08] MEDS: Acetaminophen IV 1 GM/100ML 1,000 MG/100 ML BAG IV ONE (02:53)
[2024-02-08] MEDS: Vancomycin 1,500 MG in NS 0.9% 250 ml 250 ML IVPB ONE (03:19)
[2024-02-08] MEDS ORDERED: EPINEPHrine,Rac 2.25% NEB.SOL 0.5 ML INH PRN (03:48)
[2024-02-08] MEDS: NS 0.9% 500 ml BAG 500 ML IV ONE ×2 (04:00→05:18)
[2024-02-08] MEDS: NS 0.9% 1000 ml BAG 1,000 ML IV ONE ×2 (04:20→04:25)
[2024-02-08] MEDS: Norepinephrine 4 MG/250mL D5W 4,000 MCG/250 ML BAG IV SCH (04:25)
[2024-02-08] MEDS: Hydrocortisone INJ 250 MG VIAL IM ONE (04:44)
[2024-02-08] MEDS: Hydrocortisone INJ 100 MG/2ML 2 ML VIAL ONE (04:45)
[2024-02-08] MEDS: Hydrocortisone INJ 100 MG/2ML 2 ML VIAL IV ONE (04:45)
[2024-02-08 05:12] LABS: ABS Lymphocytes 0.2 10^3/uL (1.0-4.8); ABS Monocytes 0.1 10^3/uL (0.0-1.1); ABS Neutrophils 6.8 10^3/uL (1.5-7.6); ABS Nucleated RBC 0.02 10^3/ul; Eosinophil % 0.4 %; Hemoglobin 11.3 g/dL (13.2-16.3); Lymphocyte % 2.5 %; Mean Corpuscular Hemoglobin 31.4 pg (27-33); Mean Corpuscular Hgb Conc 33.1 g/dL (31-36); Mean Corpuscular Volume 94.6 fL (80-97); Mean Platelet Volume 8.9 fL (7.5-11.2); Nucleated Red Blood Cells % 0.2 %/100WBC (0.0-0.8); Platelet Count 111 10^3/uL (150-450); Red Blood Count 3.59 10^6/uL (4.06-5.63); Red Cell Distribution Width 18.5 % (12-17); White Blood Count 7.1 10^3/uL (3.6-10.2)
[2024-02-08 05:34] LABS: Calcium 7.2 mg/dL (8.6-10.3); Creatinine, Serum 0.72 mg/dL (0.67-1.17); Potassium 4.2 mmol/L (3.5-5.0); eGFR CKD-EPI 97.7 (>60)
[2024-02-08 05:38] LABS: PCO2 Arterial 33 mmHg (35-45); PO2 Arterial 65 mmHg (80-100)
[2024-02-08] MEDS: Chlorhexidine MOUTHWASH 0.12% 15 ML UDC SWISH SPIT SCH (05:39)
[2024-02-08] MEDS: Lactated Ringers 1000 ml BAG 1,000 ML IV ONE ×2 (05:39→05:43)
[2024-02-08] MEDS: Magnesium Sulfate IV 1GM/100ML 1 GM/100 ML BAG IV ONE (05:39)
[2024-02-08] MEDS: ZOSYN 3.375 GM Q8H per EXTENDED INFUSION IV SCH (06:35)
[2024-02-08 08:07] LABS: Albumin 2.3 g/dL (3.2-5.2); Albumin/Globulin Ratio 0.8 (1-3); Direct Bilirubin 0.2 mg/dL (0.03-0.18); Globulin 2.9 g/dL (2-4); Indirect Bilirubin 0.5 mg/dL (0.3-1.0); Total Bilirubin 0.7 mg/dL (0.2-1.0); Total Protein 5.2 g/dL (6.4-8.9)
[2024-02-08 08:17] LABS: Urine Appearance Extra Turbid; Urine Bilirubin Negative (Negative); Urine Blood 3+ (Negative); Urine Glucose Trace (Negative); Urine Ketones Negative (Negative); Urine Nitrite Negative (Negative); Urine Protein 1+ (>=30 mg/dL) (Negative); Urine Specific Gravity 1.027 (1.002-1.030); Urine Urobilinogen Negative (Negative); Urine pH 5.5 (5.0-8.0)
[2024-02-08 08:30] LABS: Urine Bacteria Absent /HPF (Absent); Urine Granular Casts Present /LPF (Absent); Urine Red Blood Cell 3+(>10/hpf) /HPF (0-Trace); Urine White Blood Cell 1+(6-10/hpf) /HPF (0-Trace)
[2024-02-08 08:53] LABS: Urine Color Dark-Yellow
[2024-02-08] MEDS ORDERED: Polyethylene Glycol 3350 17 GM PACKET NG TUBE PRN (09:40)
[2024-02-08] MEDS: Chlorhexidine MOUTHWASH 0.12% 15 ML UDC TOPICAL SCH (09:52)
[2024-02-08] MEDS: methylPREDNISolone SOD 125 mg 250 MG in NS 0.9% 100 ml BAG 100 ML IV SCH (09:53)
[2024-02-08] MEDS: Famotidine IV 10 MG/ML 2 ml VIAL (20 mg) IV SLOW PU SCH (11:37)
[2024-02-08] MEDS: Cholecalciferol (VIT D3) 1,000 unit TAB PO SCH (11:37)
[2024-02-08] MEDS ORDERED: Vancomycin 1,250 MG in NS 0.9% 250 ml 250 ML IVPB SCH (12:00)
[2024-02-08] MEDS: Cholecalciferol (VIT D3) 1,000 unit TAB FEED TUBE SCH (12:38)
[2024-02-08] MEDS: Digoxin LIQ ORALSYR 0.05 MG/ML 1 ML NG TUBE SCH (13:21)
[2024-02-09 04:30] LABS: Hematocrit 27.1 % (38-53); Hemoglobin 9.1 g/dL (13.2-16.3); Mean Corpuscular Hemoglobin 31.8 pg (27-33); Mean Corpuscular Hgb Conc 33.8 g/dL (31-36); Mean Corpuscular Volume 94.2 fL (80-97); Red Blood Count 2.87 10^6/uL (4.06-5.63); Red Cell Distribution Width 18.2 % (12-17); White Blood Count 10.6 10^3/uL (3.6-10.2)
[2024-02-09 05:02] LABS: ABS Lymphocytes 0.3 10^3/uL (1.0-4.8); ABS Monocytes 0.2 10^3/uL (0.0-1.1); ABS Neutrophils 10.1 10^3/uL (1.5-7.6); ABS Nucleated RBC 0.01 10^3/ul; Lymphocyte % 3.2 %; Mean Platelet Volume 8.5 fL (7.5-11.2); Nucleated Red Blood Cells % 0.1 %/100WBC (0.0-0.8); Platelet Count 78 10^3/uL (150-450)
[2024-02-09 05:47] LABS: ALT 81 U/L (7-52); Albumin/Globulin Ratio 0.8 (1-3); Alkaline Phosphatase 62 U/L (35-149); Anion Gap 6 mmol/L (2-16); Blood Urea Nitrogen 28 mg/dL (6-24); CO2 Carbon Dioxide 23 mmol/L (22-32); Calcium 6.8 mg/dL (8.6-10.3); Chloride 111 mmol/L (101-111); Creatinine, Serum 0.31 mg/dL (0.67-1.17); Globulin 2.4 g/dL (2-4); Glucose 93 mg/dL (70-100); Sodium 140 mmol/L (135-145); Total Bilirubin 0.6 mg/dL (0.2-1.0); Total Protein 4.4 g/dL (6.4-8.9)
[2024-02-09] MEDS: CALCIUM GLUCONATE 1GM/50ML NS 1 GM/50 ML BAG IV SCH (08:54)
[2024-02-09] MEDS ORDERED: Vancomycin Trough Check NOTE FOLLOW UP ONE (11:30)
[2024-02-09 11:35] LABS: Magnesium 1.9 mg/dL (1.9-2.7); Potassium Redraw 3.2 mmol/L (3.5-5.0)
[2024-02-09] MEDS: Enoxaparin 100 MG/ML SYR SUBCUT SCH (13:41)
[2024-02-09] MEDS: Magnesium Sulfate 2 gm BAG 2 GM/50 ML BAG IVPB ONE (13:41)
[2024-02-09] MEDS ORDERED: Digoxin IV 0.5 MG/2 ML AMP (0.25 MG/ML) IV SLOW PU SCH (14:00)
[2024-02-09] MEDS: KCL 20 MEQ/100 ML IVPREMIX 20 MEQ/100 ML BAG IV SCH ×2 (14:42→17:31)
[2024-02-09 14:56] LABS: CSF Oligoclonal Bands 0 bands; Oligoclonal Proteins Interpret 0 bands (<2); Serum Oligoclonal Bands 0 bands
[2024-02-09] MEDS ORDERED: Digoxin IV 0.5 MG/2 ML AMP (0.25 MG/ML) IV SLOW PU PRN (22:41)
[2024-02-10] MEDS: Norepinephrine 4 MG/250mL D5W 4,000 MCG/250 ML BAG IV ONE (00:11)
[2024-02-10 05:10] LABS: ABS Lymphocytes 0.3 10^3/uL (1.0-4.8); ABS Monocytes 0.1 10^3/uL (0.0-1.1); ABS Neutrophils 5.9 10^3/uL (1.5-7.6); ABS Nucleated RBC 0.01 10^3/ul; Eosinophil % 0.2 %; Hematocrit 26.5 % (38-53); Hemoglobin 8.9 g/dL (13.2-16.3); Lymphocyte % 4.8 %; Mean Corpuscular Hemoglobin 31.5 pg (27-33); Mean Corpuscular Hgb Conc 33.5 g/dL (31-36); Mean Corpuscular Volume 94.2 fL (80-97); Nucleated Red Blood Cells % 0.1 %/100WBC (0.0-0.8); Platelet Count 65 10^3/uL (150-450); Red Blood Count 2.82 10^6/uL (4.06-5.63); Red Cell Distribution Width 19.9 % (12-17); White Blood Count 6.3 10^3/uL (3.6-10.2)
[2024-02-10 06:42] LABS: Anion Gap 12 mmol/L (2-16); Blood Urea Nitrogen 23 mg/dL (6-24); CO2 Carbon Dioxide 22 mmol/L (22-32); Chloride 111 mmol/L (101-111); Glucose 85 mg/dL (70-100); Magnesium 1.8 mg/dL (1.9-2.7); Phosphorus 1.7 mg/dL (2.5-5.0); Potassium 3.7 mmol/L (3.5-5.0); Sodium 145 mmol/L (135-145)
[2024-02-10 06:55] LABS: Creatinine, Serum < 0.30 mg/dL (0.67-1.17); eGFR CKD-EPI 127.2 (>60)
[2024-02-10] MEDS: KCL 10 MEQ/50 ML IVPREMIX 10 MEQ/50 ML BAG IV ONE (07:31)
[2024-02-10] MEDS: KCL 20 MEQ/100 ML IVPREMIX 20 MEQ/100 ML BAG IV ONE (07:40)
[2024-02-10] MEDS: Magnesium Sulfate 2 gm BAG 2 GM/50 ML BAG IVPB ONE (07:47)
[2024-02-10] MEDS: Digoxin IV 0.5 MG/2 ML AMP (0.25 MG/ML) IV SLOW PU SCH (08:02)
[2024-02-10] MEDS: methylPREDNISolone SOD SUCC 40 mg/ml 1 ml VIAL IV SCH (08:14)
[2024-02-10] MEDS: Magnesium Sulfate IV 1GM/100ML 1 GM/100 ML BAG IV ONE (09:10)
[2024-02-10] MEDS: Potassium Phosphate IV 15 MMOL in NS 0.9% 250 ml 250 ML IVPB ONE (09:45)
[2024-02-10 17:04] LABS: % Iron Saturation 18 % (15-55); .Transferrin 101 mg/dL (203-362); Iron 25 ug/dL (50-212); Total Iron Binding Capacity 141 mcg/dL (250-450); Unsaturated Iron Binding 116 ug/dL
[2024-02-10 17:14] LABS: Ferritin 885.9 ng/mL (24-336)
[2024-02-10] MEDS: Digoxin IV 0.5 MG/2 ML AMP (0.25 MG/ML) IV SLOW PU ONE (18:25)
[2024-02-10] MEDS: Digoxin IV 0.5 MG/2 ML AMP (0.25 MG/ML) ONE (19:02)
[2024-02-10 19:20] LABS: Creatinine, Serum 0.31 mg/dL (0.67-1.17); Magnesium 2.4 mg/dL (1.9-2.7); Phosphorus 2.5 mg/dL (2.5-5.0); Potassium 4.1 mmol/L (3.5-5.0)
[2024-02-10] MEDS: Cefepime 2 GM in Dextrose 2 GM/50 ML BAG IV SCH (19:47)
[2024-02-11 05:16] LABS: ABS Lymphocytes 0.2 10^3/uL (1.0-4.8); ABS Monocytes 0.1 10^3/uL (0.0-1.1); ABS Neutrophils 6.6 10^3/uL (1.5-7.6); ABS Nucleated RBC 0.01 10^3/ul; Eosinophil % 0.1 %; Hematocrit 27.5 % (38-53); Hemoglobin 9.4 g/dL (13.2-16.3); Lymphocyte % 3.3 %; Mean Corpuscular Hemoglobin 32.2 pg (27-33); Mean Corpuscular Hgb Conc 34.2 g/dL (31-36); Mean Corpuscular Volume 94.1 fL (80-97); Mean Platelet Volume 8.3 fL (7.5-11.2); Nucleated Red Blood Cells % 0.1 %/100WBC (0.0-0.8); Platelet Count 73 10^3/uL (150-450); Red Blood Count 2.92 10^6/uL (4.06-5.63); Red Cell Distribution Width 20.3 % (12-17)
[2024-02-11 05:54] LABS: Albumin 2.2 g/dL (3.2-5.2); Albumin/Globulin Ratio 0.8 (1-3); Calcium 7.1 mg/dL (8.6-10.3); Creatinine, Serum 0.44 mg/dL (0.67-1.17); Digoxin 1.3 ng/ml (0.8-2.0); Globulin 2.6 g/dL (2-4); Magnesium 2.4 mg/dL (1.9-2.7); Phosphorus 2.1 mg/dL (2.5-5.0); Total Bilirubin 0.5 mg/dL (0.2-1.0); Total Protein 4.8 g/dL (6.4-8.9); eGFR CKD-EPI 113.3 (>60)
[2024-02-11] MEDS: Rocuronium 50 mg VIAL 10 mg/ml 5 ml VIAL (50 mg) ONE (07:16)
[2024-02-11] MEDS: Propofol 10 mg/ml 100 ML BTL 1,000 MG/100 ML BTL IV SCH (07:20)
[2024-02-11] MEDS: Phenylephrine 40 mcg/mL 10mL (400mcg) SYRINGE ONE (09:21)
[2024-02-11] MEDS: Propofol 10 mg/ml 100 ML BTL 1,000 MG/100 ML BTL ONE (09:21)
[2024-02-11] MEDS: Chlorhexidine MOUTHWASH 0.12% 15 ML UDC TOPICAL SCH (09:32)
[2024-02-11] MEDS: Lactated Ringers 1000 ml BAG 1,000 ML IV ONE (11:10)
[2024-02-11] MEDS ORDERED: Phenylephrine 40 mcg/mL 10mL (400mcg) SYRINGE IV PUSH PRN (11:36)
[2024-02-11 14:50] LABS: Hematocrit 24.8 % (38-53); Hemoglobin 8.2 g/dL (13.2-16.3)
[2024-02-11] MEDS: Pantoprazole 80 mg in NS BAG 80 MG/250 ML BAG IV SCH (14:57)
[2024-02-11 18:52] LABS: Hematocrit 26.8 % (38-53); Hemoglobin 9.3 g/dL (13.2-16.3)
[2024-02-12 04:39] LABS: ABS Lymphocytes 0.4 10^3/uL (1.0-4.8); ABS Monocytes 0.1 10^3/uL (0.0-1.1); ABS Neutrophils 4.9 10^3/uL (1.5-7.6); ABS Nucleated RBC 0.03 10^3/ul; Eosinophil % 0.2 %; Hematocrit 24.7 % (38-53); Hemoglobin 8.4 g/dL (13.2-16.3); Lymphocyte % 7.6 %; Mean Corpuscular Hemoglobin 31.7 pg (27-33); Mean Corpuscular Volume 93.4 fL (80-97); Mean Platelet Volume 8.1 fL (7.5-11.2); Nucleated Red Blood Cells % 0.6 %/100WBC (0.0-0.8); Platelet Count 84 10^3/uL (150-450); Red Blood Count 2.64 10^6/uL (4.06-5.63); Red Cell Distribution Width 19.2 % (12-17); White Blood Count 5.4 10^3/uL (3.6-10.2)
[2024-02-12 05:10] LABS: Albumin 1.9 g/dL (3.2-5.2); Albumin/Globulin Ratio 0.9 (1-3); Calcium 6.7 mg/dL (8.6-10.3); Creatinine, Serum 0.44 mg/dL (0.67-1.17); Globulin 2.2 g/dL (2-4); Magnesium 2.2 mg/dL (1.9-2.7); Phosphorus 2.1 mg/dL (2.5-5.0); Potassium 3.9 mmol/L (3.5-5.0); Total Bilirubin 0.5 mg/dL (0.2-1.0); Total Protein 4.1 g/dL (6.4-8.9); eGFR CKD-EPI 113.3 (>60)
[2024-02-12] MEDS: CALCIUM GLUCONATE 1GM/50ML NS 1 GM/50 ML BAG IV SCH (08:06)
[2024-02-12] MEDS: Potassium Phosphate IV 15 MMOL in NS 0.9% 250 ml 250 ML IVPB ONE (11:37)
[2024-02-12 14:09] LABS: Hematocrit 24.4 % (38-53); Hemoglobin 8.2 g/dL (13.2-16.3)
[2024-02-12 19:14] LABS: Hematocrit 23.5 % (38-53)
[2024-02-12] MEDS: Pantoprazole VIAL 40 MG VIAL IV SCH (20:04)
[2024-02-13 04:52] LABS: Albumin/Globulin Ratio 0.8 (1-3); Calcium 6.8 mg/dL (8.6-10.3); Creatinine, Serum 0.42 mg/dL (0.67-1.17); Globulin 2.4 g/dL (2-4); Phosphorus 2.5 mg/dL (2.5-5.0); Potassium 3.7 mmol/L (3.5-5.0); Total Bilirubin 0.4 mg/dL (0.2-1.0); Total Protein 4.4 g/dL (6.4-8.9); eGFR CKD-EPI 114.9 (>60)
[2024-02-13 04:56] LABS: ABS Lymphocytes 0.4 10^3/uL (1.0-4.8); ABS Monocytes 0.1 10^3/uL (0.0-1.1); ABS Neutrophils 4.7 10^3/uL (1.5-7.6); ABS Nucleated RBC 0.02 10^3/ul; Eosinophil % 0.4 %; Hematocrit 25.2 % (38-53); Hemoglobin 8.6 g/dL (13.2-16.3); Lymphocyte % 8.3 %; Mean Corpuscular Hemoglobin 31.7 pg (27-33); Mean Corpuscular Volume 93.2 fL (80-97); Mean Platelet Volume 8.3 fL (7.5-11.2); Nucleated Red Blood Cells % 0.4 %/100WBC (0.0-0.8); Platelet Count 96 10^3/uL (150-450); Red Cell Distribution Width 19.5 % (12-17); White Blood Count 5.2 10^3/uL (3.6-10.2)
[2024-02-13] MEDS ORDERED: Pantoprazole VIAL 40 MG VIAL IV SCH (09:00)
[2024-02-14 04:49] LABS: Hematocrit 24.3 % (38-53); Hemoglobin 8.2 g/dL (13.2-16.3); Mean Corpuscular Hgb Conc 33.7 g/dL (31-36); Mean Corpuscular Volume 94.8 fL (80-97); Mean Platelet Volume 7.9 fL (7.5-11.2); Platelet Count 109 10^3/uL (150-450); Red Blood Count 2.57 10^6/uL (4.06-5.63); Red Cell Distribution Width 19.6 % (12-17)
[2024-02-14 05:00] LABS: INR 0.91 (0.83-1.13)
[2024-02-14 07:34] LABS: Albumin 1.9 g/dL (3.2-5.2); Albumin/Globulin Ratio 0.8 (1-3); Calcium 6.8 mg/dL (8.6-10.3); Creatinine, Serum 0.38 mg/dL (0.67-1.17); Globulin 2.4 g/dL (2-4); Potassium 3.2 mmol/L (3.5-5.0); Total Bilirubin 0.4 mg/dL (0.2-1.0); Total Protein 4.3 g/dL (6.4-8.9); eGFR CKD-EPI 118.5 (>60)
[2024-02-14] MEDS: D5W 1000 ml BAG 1,000 ML IV SCH ×2 (08:50→17:32)
[2024-02-14 09:17] LABS: Magnesium 1.9 mg/dL (1.9-2.7)
[2024-02-14] MEDS: KCL 20 MEQ/100 ML IVPREMIX 20 MEQ/100 ML BAG IV SCH (09:33)
[2024-02-14] MEDS: Magnesium Sulfate 2 gm BAG 2 GM/50 ML BAG IVPB ONE (10:37)
[2024-02-14] MEDS ORDERED: Lidocaine 1% w EPI 1:100,000 MDV 20 ML VIAL ONE (11:58)
[2024-02-14] MEDS ORDERED: fentaNYL 100 mcg/2 ml 50 MCG/ML VIAL ONE (12:47)
[2024-02-14] MEDS ORDERED: Midazolam 5 mg/5 ml VIAL 1 mg/ml 5 ml VIAL (5 mg) ONE (12:48)
[2024-02-14] MEDS ORDERED: Rocuronium 50 mg VIAL 10 mg/ml 5 ml VIAL (50 mg) ONE (13:13)
[2024-02-14] MEDS: Glucagon 1 mg VIAL KIT ONE (14:30)
[2024-02-14] MEDS: Lactated Ringers 1000 ml BAG 500 ML IV ONE (14:50)
[2024-02-14] MEDS: fentaNYL 100 mcg/2 ml 50 MCG/ML VIAL ONE ×2 (15:38→15:40)
[2024-02-14] MEDS: Midazolam 2 mg/2 ml VIAL 1 mg/ml 2 ml VIAL (2 mg) ONE (15:40)
[2024-02-14] MEDS: Sodium Bicarbonate 8.4% VIAL 1 MEQ/ML 50 ml VIAL (50 meq) ONE ×2 (16:34)
[2024-02-14] MEDS: Norepinephrine 4 MG/250mL D5W 0 MCG/0 ML BAG IV ONE (16:34)
[2024-02-14] MEDS: Norepinephrine 4 MG/250mL D5W 4,000 MCG/250 ML BAG IV SCH (16:34)
[2024-02-14] MEDS: fentaNYL INFUSION 50 mcg/mL VL 2,500 MCG/50 ML VIAL IV SCH (17:35)
[2024-02-15 04:05] LABS: ABS Lymphocytes 0.5 10^3/uL (1.0-4.8); ABS Monocytes 0.2 10^3/uL (0.0-1.1); ABS Neutrophils 5.6 10^3/uL (1.5-7.6); ABS Nucleated RBC 0.01 10^3/ul; Eosinophil % 0.3 %; Hematocrit 22.8 % (38-53); Hemoglobin 7.6 g/dL (13.2-16.3); Lymphocyte % 7.7 %; Mean Corpuscular Hemoglobin 31.9 pg (27-33); Mean Corpuscular Hgb Conc 33.5 g/dL (31-36); Mean Corpuscular Volume 95.4 fL (80-97); Mean Platelet Volume 7.9 fL (7.5-11.2); Nucleated Red Blood Cells % 0.1 %/100WBC (0.0-0.8); Platelet Count 116 10^3/uL (150-450); Red Blood Count 2.39 10^6/uL (4.06-5.63); Red Cell Distribution Width 19.8 % (12-17); White Blood Count 6.3 10^3/uL (3.6-10.2)
[2024-02-15 04:50] LABS: Albumin 1.9 g/dL (3.2-5.2); Albumin/Globulin Ratio 0.8 (1-3); Calcium 6.5 mg/dL (8.6-10.3); Creatinine, Serum 0.3 mg/dL (0.67-1.17); Globulin 2.3 g/dL (2-4); Potassium 3.1 mmol/L (3.5-5.0); Total Bilirubin 0.3 mg/dL (0.2-1.0); Total Protein 4.2 g/dL (6.4-8.9); eGFR CKD-EPI 127.2 (>60)
[2024-02-15] MEDS: KCL 20 MEQ/100 ML IVPREMIX 20 MEQ/100 ML BAG IV SCH (07:43)
[2024-02-15] MEDS: KCL 20 MEQ/100 ML IVPREMIX 20 MEQ/100 ML BAG ONE (07:43)
[2024-02-15 07:57] LABS: Phosphorus 2.2 mg/dL (2.5-5.0)
[2024-02-15] MEDS: Potassium Phosphate IV 10 MMOL in NS 0.9% 250 ml 250 ML IVPB ONE (11:19)
[2024-02-15] MEDS: Cefepime 2 GM in Dextrose 2 GM/50 ML BAG IV SCH (16:37)
[2024-02-15 17:07] LABS: Hematocrit 26.3 % (38-53); Hemoglobin 8.8 g/dL (13.2-16.3)
[2024-02-15] MEDS: fentaNYL 100 mcg/2 ml 50 MCG/ML VIAL IV SLOW PU ONE (21:47)
[2024-02-16 04:27] LABS: ABS Lymphocytes 0.5 10^3/uL (1.0-4.8); ABS Monocytes 0.1 10^3/uL (0.0-1.1); ABS Neutrophils 4.8 10^3/uL (1.5-7.6); ABS Nucleated RBC 0.01 10^3/ul; Eosinophil % 0.7 %; Hematocrit 25.7 % (38-53); Hemoglobin 8.8 g/dL (13.2-16.3); Lymphocyte % 9.2 %; Mean Corpuscular Hemoglobin 31.7 pg (27-33); Mean Corpuscular Hgb Conc 34.2 g/dL (31-36); Mean Corpuscular Volume 92.7 fL (80-97); Mean Platelet Volume 8.2 fL (7.5-11.2); Nucleated Red Blood Cells % 0.1 %/100WBC (0.0-0.8); Platelet Count 106 10^3/uL (150-450); Red Blood Count 2.77 10^6/uL (4.06-5.63); Red Cell Distribution Width 19.1 % (12-17); White Blood Count 5.5 10^3/uL (3.6-10.2)
[2024-02-16 04:59] LABS: ALT 40 U/L (7-52); AST 22 U/L (13-39); Albumin 1.9 g/dL (3.2-5.2); Albumin/Globulin Ratio 0.8 (1-3); Alkaline Phosphatase 65 U/L (35-149); Anion Gap 7 mmol/L (2-16); Blood Urea Nitrogen 20 mg/dL (6-24); CO2 Carbon Dioxide 24 mmol/L (22-32); Calcium 6.4 mg/dL (8.6-10.3); Chloride 115 mmol/L (101-111); Creatinine, Serum < 0.30 mg/dL (0.67-1.17); Globulin 2.3 g/dL (2-4); Glucose 95 mg/dL (70-100); Magnesium 1.8 mg/dL (1.9-2.7); Phosphorus 1.4 mg/dL (2.5-5.0); Sodium 146 mmol/L (135-145); Total Bilirubin 0.4 mg/dL (0.2-1.0); Total Protein 4.2 g/dL (6.4-8.9); eGFR CKD-EPI 127.2 (>60)
[2024-02-16] MEDS: Acetaminophen IV 1 GM/100ML 1,000 MG/100 ML BAG IV PRN (05:27)
[2024-02-16] MEDS: CALCIUM GLUCONATE 1GM/50ML NS 1 GM/50 ML BAG IV ONE (06:01)
[2024-02-16] MEDS: Magnesium Sulfate 2 gm BAG 2 GM/50 ML BAG IVPB ONE ×2 (06:03→09:15)
[2024-02-16] MEDS: Sodium Phosphate IV 10 MMOL in NS 0.9% 250 ml 250 ML IV ONE (06:58)
[2024-02-16] MEDS ORDERED: Potassium Chlor 20 meq TAB.ER PO ONE ×2 (08:00→12:00)
[2024-02-16] MEDS: Potassium Chloride LIQUID 20 MEQ/15 ML LIQUID NG TUBE SCH (08:19)
[2024-02-16] MEDS: HYDROmorphone 1 MG/1 ML SYRINGE IV SLOW PU PRN (08:49)
[2024-02-16] MEDS: Albumin Human 25% 25 GM/100 ML BTL IV ONE (09:14)
[2024-02-16] MEDS: Potassium & Sodium Phos 250 mg = 1 PACKET PO SCH (11:21)
[2024-02-16] MEDS ORDERED: riTUXimab-ABBS 10 MG/ML 10 ML VIAL IVPB ONE (14:30)
[2024-02-16 16:16] LABS: Anion Gap 5 mmol/L (2-16); Blood Urea Nitrogen 20 mg/dL (6-24); CO2 Carbon Dioxide 24 mmol/L (22-32); Calcium 6.6 mg/dL (8.6-10.3); Chloride 115 mmol/L (101-111); Creatinine, Serum < 0.30 mg/dL (0.67-1.17); Glucose 142 mg/dL (70-100); Potassium 3.4 mmol/L (3.5-5.0); Sodium 144 mmol/L (135-145); eGFR CKD-EPI 127.2 (>60)
[2024-02-16] MEDS: KCL 20 MEQ/100 ML IVPREMIX 20 MEQ/100 ML BAG IV SCH (17:46)
[2024-02-17 05:21] LABS: Hematocrit 23.3 % (38-53); Hemoglobin 7.8 g/dL (13.2-16.3); Mean Corpuscular Hgb Conc 33.4 g/dL (31-36); Mean Corpuscular Volume 95.9 fL (80-97); Red Blood Count 2.43 10^6/uL (4.06-5.63); Red Cell Distribution Width 21.3 % (12-17)
[2024-02-17 05:33] LABS: ALT 32 U/L (7-52); AST 21 U/L (13-39); Albumin/Globulin Ratio 0.9 (1-3); Alkaline Phosphatase 64 U/L (35-149); Anion Gap 6 mmol/L (2-16); Blood Urea Nitrogen 21 mg/dL (6-24); CO2 Carbon Dioxide 24 mmol/L (22-32); Calcium 6.4 mg/dL (8.6-10.3); Chloride 115 mmol/L (101-111); Creatinine, Serum < 0.30 mg/dL (0.67-1.17); Globulin 2.2 g/dL (2-4); Glucose 125 mg/dL (70-100); Magnesium 2.2 mg/dL (1.9-2.7); Phosphorus 1.8 mg/dL (2.5-5.0); Potassium 3.8 mmol/L (3.5-5.0); Sodium 145 mmol/L (135-145); Total Bilirubin 0.3 mg/dL (0.2-1.0); Total Protein 4.2 g/dL (6.4-8.9); eGFR CKD-EPI 127.2 (>60)
[2024-02-17 06:21] LABS: Mean Platelet Volume 8.2 fL (7.5-11.2); Platelet Count 91 10^3/uL (150-450)
[2024-02-17 06:23] LABS: ABS Lymphocytes 0.3 10^3/uL (1.0-4.8); ABS Monocytes 0.1 10^3/uL (0.0-1.1); ABS Neutrophils 3.5 10^3/uL (1.5-7.6); Eosinophil % 0.7 %; Lymphocyte % 6.6 %; Nucleated Red Blood Cells % 0.1 %/100WBC (0.0-0.8)
[2024-02-17 06:24] LABS: Anisocytosis 2+
[2024-02-17] MEDS: CALCIUM GLUCONATE 1GM/50ML NS 1 GM/50 ML BAG IV SCH (07:10)
[2024-02-17] MEDS: Potassium Phosphate IV 15 MMOL in NS 0.9% 250 ml 250 ML IVPB ONE ×2 (10:09→16:23)
[2024-02-17] MEDS: methylPREDNISolone SOD SUCC 40 mg/ml 1 ml VIAL IV SCH (10:14)
[2024-02-17 13:29] LABS: Hematocrit 23.9 % (38-53); Hemoglobin 8.1 g/dL (13.2-16.3)
[2024-02-17] MEDS: Digoxin IV 0.5 MG/2 ML AMP (0.25 MG/ML) IV SLOW PU ONE (17:18)
[2024-02-17 19:31] LABS: Anion Gap 4 mmol/L (2-16); Blood Urea Nitrogen 19 mg/dL (6-24); CO2 Carbon Dioxide 25 mmol/L (22-32); Calcium 6.5 mg/dL (8.6-10.3); Chloride 116 mmol/L (101-111); Creatinine, Serum < 0.30 mg/dL (0.67-1.17); Glucose 171 mg/dL (70-100); Phosphorus 6.2 mg/dL (2.5-5.0); Potassium 5.9 mmol/L (3.5-5.0); Sodium 145 mmol/L (135-145); eGFR CKD-EPI 127.2 (>60)
[2024-02-17] MEDS: SODIUM ZIRCONIUM CYCLOSILICATE 10 GM PACKET PO ONE (22:43)
[2024-02-17 23:10] LABS: Vitamin D Total 25(OH) 21.1 ng/mL (20-50)
[2024-02-18 01:16] LABS: Anion Gap 3 mmol/L (2-16); Blood Urea Nitrogen 19 mg/dL (6-24); CO2 Carbon Dioxide 26 mmol/L (22-32); Calcium 6.6 mg/dL (8.6-10.3); Chloride 116 mmol/L (101-111); Creatinine, Serum < 0.30 mg/dL (0.67-1.17); Glucose 125 mg/dL (70-100); Phosphorus 1.9 mg/dL (2.5-5.0); Potassium 3.9 mmol/L (3.5-5.0); Sodium 145 mmol/L (135-145); eGFR CKD-EPI 127.2 (>60)
[2024-02-18] MEDS: Sodium Phosphate IV 10 MMOL in NS 0.9% 250 ml 250 ML IV ONE ×2 (03:41→07:37)
[2024-02-18 05:56] LABS: Hematocrit 24.5 % (38-53); Hemoglobin 8.3 g/dL (13.2-16.3); Mean Corpuscular Hemoglobin 32.1 pg (27-33); Mean Corpuscular Hgb Conc 33.8 g/dL (31-36); Red Blood Count 2.58 10^6/uL (4.06-5.63); Red Cell Distribution Width 22.1 % (12-17); White Blood Count 3.8 10^3/uL (3.6-10.2)
[2024-02-18 06:30] LABS: ALT 33 U/L (7-52); AST 18 U/L (13-39); Albumin 2.1 g/dL (3.2-5.2); Alkaline Phosphatase 70 U/L (35-149); Anion Gap 4 mmol/L (2-16); Blood Urea Nitrogen 18 mg/dL (6-24); CO2 Carbon Dioxide 26 mmol/L (22-32); Calcium 6.6 mg/dL (8.6-10.3); Chloride 115 mmol/L (101-111); Creatinine, Serum < 0.30 mg/dL (0.67-1.17); Globulin 2.1 g/dL (2-4); Glucose 136 mg/dL (70-100); Magnesium 1.9 mg/dL (1.9-2.7); Phosphorus 1.7 mg/dL (2.5-5.0); Potassium 3.7 mmol/L (3.5-5.0); Sodium 145 mmol/L (135-145); Total Bilirubin 0.3 mg/dL (0.2-1.0); Total Protein 4.2 g/dL (6.4-8.9); eGFR CKD-EPI 127.2 (>60)
[2024-02-18 07:11] LABS: ABS Eosinophils 0.1 10^3/uL (0.0-0.5); ABS Lymphocytes 0.3 10^3/uL (1.0-4.8); ABS Monocytes 0.2 10^3/uL (0.0-1.1); ABS Neutrophils 3.3 10^3/uL (1.5-7.6); Anisocytosis 1+; Eosinophil % 1.6 %; Lymphocyte % 8.3 %; Mean Platelet Volume 8.4 fL (7.5-11.2); Nucleated Red Blood Cells % 0.1 %/100WBC (0.0-0.8); Platelet Count 85 10^3/uL (150-450); Polychromasia 1+
[2024-02-18] MEDS: Potassium Phosphate IV 15 MMOL in NS 0.9% 250 ml 250 ML IVPB ONE ×2 (07:58→10:09)
[2024-02-18] MEDS: Furosemide 40 mg/4 ml IV VIAL IV SLOW PU ONE (13:24)
[2024-02-18] MEDS: Albumin Human 25% 25 GM/100 ML BTL IV ONE (13:24)
[2024-02-18 18:17] LABS: Anion Gap 8 mmol/L (2-16); Blood Urea Nitrogen 18 mg/dL (6-24); CO2 Carbon Dioxide 26 mmol/L (22-32); Calcium 6.2 mg/dL (8.6-10.3); Chloride 114 mmol/L (101-111); Creatinine, Serum < 0.30 mg/dL (0.67-1.17); Glucose 152 mg/dL (70-100); Potassium 3.7 mmol/L (3.5-5.0); Sodium 148 mmol/L (135-145); eGFR CKD-EPI 127.2 (>60)
[2024-02-19 05:39] LABS: Hematocrit 24.2 % (38-53); Hemoglobin 8.4 g/dL (13.2-16.3); Mean Corpuscular Hemoglobin 32.4 pg (27-33); Mean Corpuscular Hgb Conc 34.5 g/dL (31-36); Mean Platelet Volume 8.6 fL (7.5-11.2); Platelet Count 100 10^3/uL (150-450); Red Blood Count 2.58 10^6/uL (4.06-5.63); Red Cell Distribution Width 21.6 % (12-17); White Blood Count 4.8 10^3/uL (3.6-10.2)
[2024-02-19 06:23] LABS: ABS Basophils 0.1 10^3/uL (0.0-0.1); ABS Eosinophils 0.1 10^3/uL (0.0-0.5); ABS Lymphocytes 0.5 10^3/uL (1.0-4.8); ABS Monocytes 0.3 10^3/uL (0.0-1.1); ABS Neutrophils 3.9 10^3/uL (1.5-7.6); ABS Nucleated RBC 0.01 10^3/ul; Eosinophil % 1.3 %; Lymphocyte % 9.8 %; Nucleated Red Blood Cells % 0.1 %/100WBC (0.0-0.8)
[2024-02-19 06:52] LABS: Anion Gap 8 mmol/L (2-16); Blood Urea Nitrogen 18 mg/dL (6-24); CO2 Carbon Dioxide 28 mmol/L (22-32); Calcium 6.7 mg/dL (8.6-10.3); Chloride 112 mmol/L (101-111); Creatinine, Serum < 0.30 mg/dL (0.67-1.17); Glucose 109 mg/dL (70-100); Magnesium 1.7 mg/dL (1.9-2.7); Phosphorus 1.3 mg/dL (2.5-5.0); Potassium 3.4 mmol/L (3.5-5.0); Sodium 148 mmol/L (135-145); eGFR CKD-EPI 127.2 (>60)
[2024-02-19] MEDS: Magnesium Sulfate 2 gm BAG 2 GM/50 ML BAG IVPB ONE (08:28)
[2024-02-19] MEDS ORDERED: Potassium Phosphate IV 15 MMOL in NS 0.9% 250 ml 250 ML IVPB SCH (09:00)
[2024-02-19] MEDS: POTASSIUM PHOSPHATE IVPB ONE ×2 (09:07→10:01)
[2024-02-19] MEDS: NS 0.9% IVPB ONE ×2 (09:07→10:01)
[2024-02-19] MEDS: Albumin Human 25% 25 GM/100 ML BTL IV ONE (10:03)
[2024-02-19] MEDS: Furosemide 40 mg/4 ml IV VIAL IV SLOW PU ONE (10:03)
[2024-02-19 15:34] LABS: Hematocrit 22.5 % (38-53); Hemoglobin 7.3 g/dL (13.2-16.3); Mean Corpuscular Hemoglobin 31.2 pg (27-33); Mean Corpuscular Hgb Conc 32.6 g/dL (31-36); Mean Corpuscular Volume 95.8 fL (80-97); Mean Platelet Volume 8.5 fL (7.5-11.2); Platelet Count 116 10^3/uL (150-450); Red Blood Count 2.35 10^6/uL (4.06-5.63); Red Cell Distribution Width 22.2 % (12-17); White Blood Count 4.2 10^3/uL (3.6-10.2)
[2024-02-19] MEDS: NS 0.9% 1000 ml BAG 1,000 ML IV ONE (16:00)
[2024-02-19 16:12] LABS: ABS Lymphocytes 0.2 10^3/uL (1.0-4.8); ABS Monocytes 0.2 10^3/uL (0.0-1.1); ABS Neutrophils 3.8 10^3/uL (1.5-7.6); ABS Nucleated RBC 0.01 10^3/ul; Eosinophil % 0.1 %; Lymphocyte % 5.2 %; Nucleated Red Blood Cells % 0.2 %/100WBC (0.0-0.8)
[2024-02-19 16:14] LABS: Anion Gap 5 mmol/L (2-16); Blood Urea Nitrogen 19 mg/dL (6-24); CO2 Carbon Dioxide 30 mmol/L (22-32); Calcium 6.6 mg/dL (8.6-10.3); Chloride 111 mmol/L (101-111); Creatinine, Serum < 0.30 mg/dL (0.67-1.17); Glucose 138 mg/dL (70-100); Potassium 3.9 mmol/L (3.5-5.0); Sodium 146 mmol/L (135-145); eGFR CKD-EPI 127.2 (>60)
[2024-02-19 16:17] LABS: Activated Partial Thrombo Time 30.5 seconds (26.0-38.0); INR 1.16 (0.83-1.13)
[2024-02-19] MEDS: Norepinephrine 4 MG/250mL D5W 4,000 MCG/250 ML BAG IV ONE (16:28)
[2024-02-19] MEDS: Iohexol 350 (CONTRAST) 500 ML MDV IV ONE (17:35)
[2024-02-19 17:57] LABS: Hematocrit 24.5 % (38-53); Hemoglobin 8.4 g/dL (13.2-16.3)
[2024-02-19] MEDS: Norepinephrine 4 MG/250mL D5W 4,000 MCG/250 ML BAG IV SCH (18:07)
[2024-02-19] MEDS: PEG 3000 GI LAVAGE 1 GALLON PO ONE (18:26)
[2024-02-19] MEDS: Propofol 10 mg/ml 100 ML BTL 1,000 MG/100 ML BTL ONE (20:46)
[2024-02-19] MEDS: Potassium Chloride LIQUID 20 MEQ/15 ML LIQUID NG TUBE SCH (21:09)
[2024-02-19] MEDS ORDERED: fentaNYL 100 mcg/2 ml 50 MCG/ML VIAL ONE (21:25)
[2024-02-19] MEDS ORDERED: Midazolam 10 mg/10 ml VIAL 1 mg/ml 10 ml VIAL (10 mg) ONE (21:25)
[2024-02-19 21:43] LABS: Hematocrit 22.3 % (38-53); Hemoglobin 7.8 g/dL (13.2-16.3); Mean Corpuscular Hemoglobin 31.1 pg (27-33); Mean Corpuscular Volume 88.8 fL (80-97); Mean Platelet Volume 8.2 fL (7.5-11.2); Platelet Count 103 10^3/uL (150-450); Red Blood Count 2.51 10^6/uL (4.06-5.63); White Blood Count 5.7 10^3/uL (3.6-10.2)
[2024-02-19] MEDS ORDERED: fentaNYL 100 mcg/2 ml 50 MCG/ML VIAL IV SLOW PU PRN (21:57)
[2024-02-19 22:07] LABS: INR 1.11 (0.83-1.13)
[2024-02-19 22:26] LABS: ALT 20 U/L (7-52); AST 15 U/L (13-39); Albumin 2.3 g/dL (3.2-5.2); Albumin/Globulin Ratio 1.4 (1-3); Alkaline Phosphatase 52 U/L (35-149); Anion Gap 9 mmol/L (2-16); Blood Urea Nitrogen 16 mg/dL (6-24); CO2 Carbon Dioxide 30 mmol/L (22-32); Calcium 6.2 mg/dL (8.6-10.3); Chloride 111 mmol/L (101-111); Creatinine, Serum < 0.30 mg/dL (0.67-1.17); Globulin 1.6 g/dL (2-4); Glucose 85 mg/dL (70-100); Potassium 3.6 mmol/L (3.5-5.0); Sodium 150 mmol/L (135-145); Total Bilirubin 0.6 mg/dL (0.2-1.0); Total Protein 3.9 g/dL (6.4-8.9); eGFR CKD-EPI 127.2 (>60)
[2024-02-19 22:59] LABS: ABS Lymphocytes 0.7 10^3/uL (1.0-4.8); ABS Monocytes 0.4 10^3/uL (0.0-1.1); ABS Neutrophils 4.5 10^3/uL (1.5-7.6); ABS Nucleated RBC 0.02 10^3/ul; Anisocytosis 2+; Eosinophil % 0.6 %; Lymphocyte % 12.4 %; Nucleated Red Blood Cells % 0.4 %/100WBC (0.0-0.8)
[2024-02-19] MEDS: CALCIUM GLUCONATE 1GM/50ML NS 1 GM/50 ML BAG IV ONE (23:18)
[2024-02-20] MEDS: VASOPRESSIN IVPREMIX BTL 40 UNIT/100 ML BTL IV SCH (00:47)
[2024-02-20] MEDS: VASOPRESSIN IVPREMIX BTL 40 UNIT/100 ML BTL IV ONE (00:53)
[2024-02-20] MEDS ORDERED: Morphine ORAL CONCENTRATE 5 MG/0.25 ML ORAL.SYRIN PO PRN (02:29)
[2024-02-20] MEDS ORDERED: Atropine 1% (ORAL/SL) 15 ML BTL SL PRN (03:16)
[2024-02-20] MEDS: Propofol 10 mg/ml 100 ML BTL 1,000 MG/100 ML BTL IV SCH (04:12)
[2024-02-20] MEDS ORDERED: Lorazepam PYXIS KEY PRN (08:16)
[2024-02-20] MEDS: LORazepam 2 mg VIAL 1 ml IV PUSH PRN (09:01)
[2024-02-20 10:46] LABS: Immunoglobulin G 735 mg/dL (767 - 1590); Immunoglobulin M 54 mg/dL (37 - 286)
[2024-02-20 17:19] VITALS: BP 00/00
== END 2024-02-21 04:15 | disposition expired | DRG 4 ==
LOC: EDACCT# → EDHOLD 12:39 → ED 12:39 → ICU 16:41 → SUATTDRO 01-15 08:08 → MEDTELE 01-15 18:14 → ICU 01-19 05:50 → MED 02-20 13:16
PROVIDERS: ADMIT Internal Medicine; ATTEND Internal Medicine
PROC: CARDVER (ICD-10-PCS; 2024-01-20 10:00)